=== PATIENT | female | born 1945 ===

== ENCOUNTER 2017-08-13 10:25 | Emergency (ER) | payer MEDICARE, OTHER ==
[2017-08-13 10:26] VITALS: BMI 25.0
[2017-08-13 11:32] LABS: BASO % 0.4 % (0.0-2.0); EOS % 0.6 % (0.0-4.0); LYMPH # 1.9 K/uL (1.0-4.3); LYMPH % 31.1 % (20.0-40.0); MEAN CELL VOLUME 94.7 fL (81.0-99.0); MEAN CORPUSCULAR HEMOGLOBIN 32.4 pg (27.0-31.0); MEAN CORPUSCULAR HGB CONC 34.2 g/dL (33.0-37.0); MEAN PLATELET VOLUME 8.4 fL (7.2-11.7); MONO # 0.4 K/uL (0.0-0.8); NEUT # 3.7 K/uL (1.8-7.0); NEUT % 60.9 % (50.0-75.0); RBC 3.71 Mil/uL (3.80-5.20); RED CELL DISTRIBUTION WIDTH 13.2 % (11.5-14.5); WHITE BLOOD COUNT 6.1 K/uL (4.8-10.8)
[2017-08-13 11:39] LABS: INR 0.9; PROTHROMBIN TIME 10.7 SECONDS (9.7-12.2)
[2017-08-13 11:48] LABS: ALB/GLOB RATIO 1.3 (1.0-2.1); ALBUMIN 4.3 g/dL (3.5-5.0); ALT/SGPT 11 U/L (9-52); AST/SGOT 35 U/L (14-36); BLOOD UREA NITROGEN 17 mg/dL (7-17); CALCIUM 9.8 mg/dl (8.6-10.4); GFR AFRICAN-AMERICAN > 60; GFR NON-AFRICAN AMERICAN > 60; URIC ACID 3.4 mg/dL (2.2-7.5)
--- NOTE | 2017-08-13 12:08 | RAD ---
PROCEDURE: Left Foot Radiographs. HISTORY: foot and heel pain for week COMPARISON: None. FINDINGS: BONES: Osteopenia. No acute fracture. JOINTS: Joint space narrowing. SOFT TISSUES: Normal. OTHER FINDINGS: Achilles enthesophyte. Inferior plantar calcaneal spur. IMPRESSION: No demonstrated fracture or dislocation. Mild degenerative changes. Calcaneal spur.
--- NOTE | 2017-08-13 12:09 | RAD ---
PROCEDURE: Left Knee Radiographs. HISTORY: Pain. COMPARISON: None. FINDINGS: BONES: No acute fracture. JOINTS: Mild tibial femoral compartment narrowing with minimal degenerative spurring. JOINT EFFUSION: None. OTHER FINDINGS: None. IMPRESSION: No demonstrated fracture or dislocation. Mild degenerative changes.
--- NOTE | 2017-08-13 12:48 | VASCLAB ---
PROCEDURE: Left Lower Extremity Venous Duplex Exam. HISTORY: left leg pain PRIORS: None. TECHNIQUE: Left common femoral, femoral, popliteal and posterior tibial, peroneal and great saphenous veins were evaluated. Flow was assessed with color Doppler, compressibility, assessment of phasic flow and augmentation response. Report prepared by LUCERO Yung, RVT FINDINGS: LEFT: 1. Common Femoral Vein: 1.1. Compressibility - Fully compressible: Thrombus - None : Flow - Phasic: Augmentation -Normal: Reflux - None. 2. Femoral Vein: 2.1. Compressibility - Fully compressible: Thrombus - None: Flow - Phasic: Augmentation -Normal: Reflux - None. 3. Popliteal Vein: 3.1. Compressibility - Fully compressible: Thrombus - None: Flow - Phasic: Augmentation -Normal: Reflux - None. 4. Posterior Tibial Vein: 4.1. Compressibility - Fully compressible: Thrombus - None: Flow - Phasic: Augmentation -Normal: Reflux - None. 5. Peroneal Vein: 5.1. Compressibility - Fully compressible: Thrombus - None: Flow - Phasic: Augmentation -Normal: Reflux - None. 6. Great Saphenous Vein: 6.1. Compressibility - Fully compressible: Thrombus - None: Flow - Phasic: Augmentation - Normal: Reflux - None. OTHER FINDINGS: IMPRESSION: No evidence of deep or superficial vein thrombosis of the left lower extremity with excellent venous flow. Normal valve function noted of the left side. Normal venous flow noted in the right common femoral vein.
--- NOTE | 2017-08-13 12:54 | C.PDOC ---
History Of Present Illness 72 year old female presents to the ED for evaluation of left foot pain radiating to left thigh which began 1 week ago. Patient describes a "cramping" sensation. She states the pain begins at the heel of her left foot, then radiates to her left ankle and to her left mid-thigh. Patient has been taking Naproxen without significant relief. Patient denies injury, fever, chills, shortness of breath. Time Seen by Provider: 08/13/17 10:57 Chief Complaint (Nursing): Lower Extremity Problem/Injury History Per: Patient History/Exam Limitations: no limitations Past Medical History Vital Signs: Last Vital Signs Temp 98.4 F 08/13/17 13:47 Pulse 75 08/13/17 13:47 Resp 20 08/13/17 13:47 BP 137/84 08/13/17 13:47 Pulse Ox 96 08/13/17 13:47 - Medical History PMH: Anxiety, Arthritis, Diabetes (with neuropathy), Diverticulitis, Hypercholesterolemia, Osteoporosis, Parkinson's Disease, TIA Surgical History: Appendectomy, Cholecystectomy - [facility] Procedures APPLICATION OF SPLINT (09/26/05) COLONOSCOPY (02/16/14) LAPAROSCOP LYSIS-PERITONEAL ADHES (06/29/99) LAPAROSCOP REMOVE OVARIES/TUBES (06/29/99) Family History: States: Unknown Family Hx - Social History Hx Alcohol Use: No Hx Substance Use: No - Immunization History Hx Tetanus Toxoid Vaccination: No Hx Influenza Vaccination: Yes Hx Pneumococcal Vaccination: Yes Review Of Systems Respiratory: Negative for: Shortness of Breath Musculoskeletal: Positive for: Leg Pain Physical Exam - Physical Exam Appears: Non-toxic, No Acute Distress Skin: Normal Color, Warm, Dry Head: Atraumatic, Normacephalic Eye(s): bilateral: Normal Inspection, EOMI Oral Mucosa: Moist Neck: Supple Chest: Symmetrical, No Deformity, No Tenderness Cardiovascular: Rhythm Regular, No Murmur Respiratory: Normal Breath Sounds, No Rhonchi, No Wheezing Extremity: Normal ROM, Tenderness (to left heel, left anterior tibial region and left knee ), No Pedal Edema, No Calf Tenderness, Capillary Refill (less than 2 seconds ), No Deformity, No Swelling Extremity: Bilateral: Hips Non-Tender Pulses: Left Dorsalis Pedis: Normal, Right Dorsalis Pedis: Normal Neurological/Psych: Oriented x3, Normal Speech, Normal Motor, Normal Sensation Gait: Steady ED Course And Treatment - Laboratory Results Result Diagrams: 08/13/17 11:29 08/13/17 11:29 Lab Interpretation: No Acute Changes O2 Sat by Pulse Oximetry: 98 (on RA) Pulse Ox Interpretation: Normal - Other Rad left foot XR X-Ray: Interpreted by Me, Viewed By Me, Read By Radiologist Interpretation: PROCEDURE: Left Foot Radiographs. HISTORY: foot and heel pain for week. COMPARISON: None. FINDINGS: BONES: Osteopenia. No acute fracture. JOINTS: Joint space narrowing. SOFT TISSUES: Normal. OTHER FINDINGS: Achilles enthesophyte. Inferior plantar calcaneal spur. IMPRESSION : No demonstrated fracture or dislocation. Mild degenerative changes. Calcaneal spur. left knee XR X-Ray: Interpreted by Me, Viewed By Me, Read By Radiologist Interpretation: PROCEDURE: Left Knee Radiographs. HISTORY: Pain. COMPARISON : None. FINDINGS: BONES: No acute fracture. JOINTS: Mild tibial femoral compartment narrowing with minimal degenerative spurring. JOINT EFFUSION: None. OTHER FINDINGS: None. IMPRESSION: No demonstrated fracture or dislocation. Mild degenerative changes. Medical Decision Making Medical Decision Making: Impression: 71 year old female with left lower extremity pain Plan: * bloodwork * left foot XR * Venous Duplex Scan left lower extremity * Toradol IVP * reassess and disposition Progress: Bloodwork, Left foot XR, Venous Duplex Scan Left lower Extremity ordered. Venous doppler was negative. Radiologic studies reviewed and radiology reports read. There is calcaneal spurring which can explain heel pain. Patient remained well in no distress and reported pain was improving. I explained all results to patient. Patient feels comfortable going home and will be discharged. Patient given follow up instructions. Instructed to return to ER if symptoms worsen or new symptoms arise. 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 - Scribe Statement The provider has reviewed the documentation as recorded by the Scribe (Dulce Maria Shoemaker) All medical record entries made by the Scribe were at my direction and personally dictated by me. I have reviewed the chart and agree that the record accurately reflects my personal performance of the history, physical exam, medical decision making, and the department course for this patient. I have also personally directed, reviewed, and agree with the discharge instructions and disposition.
[2017-08-13 13:48] VITALS: BP 137/84; PULSE 75; RESP 20; TEMP 98.4
[2017-08-13 17:13] VITALS: O2SAT 98
== END 2017-08-13 13:47 | disposition home or self-care (01) ==
LOC: C.ER 10:25
DX: M72.2 Plantar fascial fibromatosis (principal); E11.40 Type 2 diabetes mellitus with diabetic neuropathy, unspecified; E78.00 Pure hypercholesterolemia, unspecified; G20 Parkinson's disease; Z86.73 Personal history of transient ischemic attack (TIA), and cerebral infarction without residual deficits
CPT/HCPCS: 73562; 73630; 80053; 84550; 85025; 85610; 85730; 93971; 96374; 99284; J1885

== ENCOUNTER 2017-12-09 10:51 | Emergency (ER) | payer MEDICARE, OTHER ==
[2017-12-09 10:51] VITALS: BMI 25.0
--- NOTE | 2017-12-09 12:03 | C.PDOC ---
History Of Present Illness 72 y/o female with PMHx of Parkinsons disease brought in by family for complaints of bilateral foot pain, worsening for the past several days. Patient reports having pins and needles sensation to the bottoms of both feet and toes. Also complains of numbness and stiffness to the bilateral fingers. States around 6:00am today she was unable to get out of her chair, prompting her to come in for evaluation. Patient reports taking gabapentin with initial relief of symptoms, but now states the medication is not working. Otherwise patient denies any headache, dizziness, shortness of breath, leg swelling, changes in speech, facial droop, focal weakness, change in mental status, or other complaints. Time Seen by Provider: 12/09/17 10:56 Chief Complaint (Nursing): Weakness/Neurological Deficit History Per: Patient History/Exam Limitations: no limitations Onset/Duration Of Symptoms: Days Current Symptoms Are (Timing): Worse Additional History Per: Family Past Medical History Reviewed: Historical Data, Nursing Documentation, Vital Signs Vital Signs: Last Vital Signs Temp 98.2 F 12/09/17 11:08 Pulse 105 H 12/09/17 11:08 Resp 20 12/09/17 11:08 BP 163/82 H 12/09/17 11:08 Pulse Ox 98 12/09/17 12:08 - Medical History PMH: Anxiety, Arthritis, Diabetes (with neuropathy), Diverticulitis, Hypercholesterolemia, Osteoporosis, Parkinson's Disease, TIA Denies: CAD, Gastritis, Gall Bladder Disease, GERD, HIV, Pancreatitis, Chronic Kidney Disease Surgical History: Appendectomy, Cholecystectomy - [facility] Procedures APPLICATION OF SPLINT (09/26/05) COLONOSCOPY (02/16/14) LAPAROSCOP LYSIS-PERITONEAL ADHES (06/29/99) LAPAROSCOP REMOVE OVARIES/TUBES (06/29/99) Family History: States: Unknown Family Hx - Social History Hx Alcohol Use: No Hx Substance Use: No - Immunization History Hx Tetanus Toxoid Vaccination: No Hx Influenza Vaccination: Yes Hx Pneumococcal Vaccination: Yes Review Of Systems Except As Marked, All Systems Reviewed And Found Negative. Constitutional: Negative for: Fever Eyes: Negative for: Vision Change Cardiovascular: Negative for: Chest Pain Respiratory: Negative for: Shortness of Breath Gastrointestinal: Negative for: Nausea, Vomiting, Diarrhea Musculoskeletal: Positive for: Foot Pain Skin: Negative for: Rash, Bruising Neurological: Negative for: Weakness, Numbness, Incoordination, Change in Speech , Confusion, Altered Mental Status, Dizziness Physical Exam - Physical Exam Appears: Non-toxic, No Acute Distress Skin: Normal Color, Warm, Dry Head: Atraumatic, Normacephalic Eye(s): bilateral: Normal Inspection, PERRL, EOMI Neck: Normal ROM, Supple Chest: Symmetrical Cardiovascular: Rhythm Regular, No Murmur Respiratory: Normal Breath Sounds, No Accessory Muscle Use Gastrointestinal/Abdominal: Soft, No Tenderness, No Distention Extremity: Tenderness (mild tenderness the plantar aspect of both feet) Extremity: Bilateral: Atraumatic, Normal Color And Temperature (with no edema, cyanosis, or signs of cellulitis), Other (Mild tremors at rest, consistent with history of Parkinson's) Pulses: Left Dorsalis Pedis: Normal (2+), Right Dorsalis Pedis: Normal (2+) Neurological/Psych: Oriented x3, Normal Speech, Normal Cranial Nerves, Normal Motor (redeye gunner strength equal bilaterally), Normal Sensation, No Dysarthria Other Neurological Findings: No Facial Palsy, No Tongue Deviation Extremity: Right: No Drift, Left: No Drift, Lower: No Drift ED Course And Treatment - Laboratory Results Result Diagrams: 12/09/17 12:11 12/09/17 12:11 O2 Sat by Pulse Oximetry: 98 (RA) Pulse Ox Interpretation: Normal Medical Decision Making Medical Decision Making: Initial Plan: --Blood work --Doppler US of bilateral lower extreme --Morphine 2 mg IVP --Reassess and dispo Disposition - Disposition Referrals: Andrew Christie MD [Staff Provider] - Disposition: HOME/ ROUTINE Disposition Time: 13:41 Condition: GOOD Additional Instructions: Try increasing the Gabapentin to 600mg TID. Make sure to walk using the walker. Follow up with the medical doctor within 1-2 days. return if worsened. 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 - Scribe Statement The provider has reviewed the documentation as recorded by the Scribe (Tram Rebolledo) All medical record entries made by the Scribe were at my direction and personally dictated by me. I have reviewed the chart and agree that the record accurately reflects my personal performance of the history, physical exam, medical decision making, and the department course for this patient. I have also personally directed, reviewed, and agree with the discharge instructions and disposition.
[2017-12-09 12:15] LABS: BASO # 0.1 K/uL (0.0-0.2); BASO % 0.7 % (0.0-2.0); EOS % 0.1 % (0.0-4.0); HEMOGLOBIN 12.5 g/dL (11.0-16.0); LYMPH # 1.5 K/uL (1.0-4.3); MEAN CELL VOLUME 93.6 fL (81.0-99.0); MEAN CORPUSCULAR HEMOGLOBIN 32.3 pg (27.0-31.0); MEAN CORPUSCULAR HGB CONC 34.5 g/dL (33.0-37.0); MEAN PLATELET VOLUME 8.8 fL (7.2-11.7); MONO # 0.4 K/uL (0.0-0.8); MONO % 5.9 % (0.0-10.0); NEUT # 5.5 K/uL (1.8-7.0); NEUT % 73.3 % (50.0-75.0); RBC 3.88 Mil/uL (3.80-5.20); RED CELL DISTRIBUTION WIDTH 13.2 % (11.5-14.5); WHITE BLOOD COUNT 7.5 K/uL (4.8-10.8)
[2017-12-09 12:36] LABS: ALB/GLOB RATIO 1.5 (1.0-2.1); ALBUMIN 4.6 g/dL (3.5-5.0); ALT/SGPT 22 U/L (9-52); AST/SGOT 32 U/L (14-36); BLOOD UREA NITROGEN 19 mg/dL (7-17); CALCIUM 10.1 mg/dl (8.6-10.4); GFR NON-AFRICAN AMERICAN > 60
[2017-12-09] MEDS ORDERED: PrednisoLONE 15 mg/5 ml Oral Syrup (240 ml) ONE (13:34)
[2017-12-09 13:58] VITALS: BP 160/80; PULSE 100; RESP 18; TEMP 98; O2SAT 97
--- NOTE | 2017-12-09 18:01 | VASCLAB ---
Date of service: 12/09/2017 PROCEDURE: Lower Extremity Venous Duplex Exam. HISTORY: bilateral leg pain and swelling PRIORS: None. TECHNIQUE: Bilateral common femoral, femoral, popliteal and posterior tibial, peroneal and great saphenous veins were evaluated. Flow was assessed with color Doppler, compressibility, assessment of phasic flow and augmentation response. Report prepared by SANYA Brantley FINDINGS: RIGHT: 1. Common Femoral Vein: 1.1. Compressibility - Fully compressible: Thrombus - None : Flow - Phasic: Augmentation -Normal: Reflux - None. 2. Femoral Vein: 2.1. Compressibility - Fully compressible: Thrombus - None : Flow - Phasic: Augmentation -Normal: Reflux - None. 3. Popliteal Vein: 3.1. Compressibility - Fully compressible: Thrombus - None : Flow - Phasic: Augmentation -Normal: Reflux - None. 4. Posterior Tibial Vein: 4.1. Compressibility - Fully compressible: Thrombus - None: Flow - Phasic: Augmentation -Normal: Reflux - None. 5. Peroneal Vein: 5.1. Compressibility - Fully compressible: Thrombus - None: Flow - Phasic: Augmentation -Normal: Reflux - None. 6. Great Saphenous Vein: 6.1. Compressibility - Fully compressible: Thrombus - None: Flow - Phasic: Augmentation - Normal: Reflux - None. LEFT: 1. Common Femoral Vein: 1.1. Compressibility - Fully compressible: Thrombus - None: Flow - Phasic: Augmentation -Normal: Reflux - None. 2. Femoral Vein: 2.1. Compressibility - Fully compressible: Thrombus - None: Flow - Phasic: Augmentation -Normal: Reflux - None. 3. Popliteal Vein: 3.1. Compressibility - Fully compressible: Thrombus - None : Flow - Phasic: Augmentation -Normal: Reflux - None. 4. Posterior Tibial Vein: 4.1. Compressibility - Fully compressible: Thrombus - None: Flow - Phasic: Augmentation -Normal: Reflux - None. 5. Peroneal Vein: 5.1. Compressibility - Fully compressible: Thrombus - None: Flow - Phasic: Augmentation -Normal: Reflux - None. 6. Great Saphenous Vein: 6.1. Compressibility - Fully compressible: Thrombus - None: Flow - Phasic: Augmentation - Normal: Reflux - None. OTHER FINDINGS: Right: None significant. Left: None significant. IMPRESSION: Right: No evidence of deep or superficial vein thrombosis of the right lower extremity. Normal valve function noted of the right side. Left: No evidence of deep or superficial vein thrombosis of the left lower extremity. Normal valve function noted of the left side.
== END 2017-12-09 13:58 | disposition home or self-care (01) ==
LOC: C.ER 10:51
DX: G62.9 Polyneuropathy, unspecified (principal); G20 Parkinson's disease
CPT/HCPCS: 80053; 82948; 85025; 93970; 96374; 99283; J2270

== ENCOUNTER 2017-12-09 19:00 | Inpatient (IN) | payer MEDICARE ==
[2017-12-09 19:00] VITALS: BMI 25.0
[2017-12-09] MEDS ORDERED: DTap Vaccine 0.5 ml Vial IM ONE (19:10)
--- NOTE | 2017-12-09 19:23 | C.PDOC ---
History Of Present Illness 72 y/o female with a PMHx of Parkinsons and peripheral neuropathy presents to the ER for evaluation of head injury. Patient states while walking with her walker today she tripped on a curb and fell backwards, sustaining a laceration to the back of her head. She is now complaining of a headache. No LOC. Denies any anticoagulant use. Last tetanus unknown. Otherwise she denies any chest pain , SOB, dizziness, visual changes, changes in speech, nausea, vomiting, abdominal pain, new weakness, or other injuries. - HPI Time Seen by Provider: 12/09/17 19:06 Chief Complaint (Nursing): Trauma History Per: Patient History/Exam Limitations: no limitations Injury Occurred (Timing): Just Before Arrival Past Medical History Reviewed: Historical Data, Nursing Documentation, Vital Signs Vital Signs: Last Vital Signs Temp 98.6 F 12/09/17 19:11 Pulse 78 12/09/17 19:11 Resp 20 12/09/17 19:11 BP 143/79 12/09/17 19:11 Pulse Ox 99 12/09/17 20:58 - Medical History PMH: Anxiety, Arthritis, Diabetes (with neuropathy), Diverticulitis, Hypercholesterolemia, Osteoporosis, Parkinson's Disease, TIA Denies: CAD, Gastritis, Gall Bladder Disease, GERD, HIV, Pancreatitis, Chronic Kidney Disease Other PMH: Peripheral neuropathy Surgical History: Appendectomy, Cholecystectomy - [facility] Procedures APPLICATION OF SPLINT (09/26/05) COLONOSCOPY (02/16/14) LAPAROSCOP LYSIS-PERITONEAL ADHES (06/29/99) LAPAROSCOP REMOVE OVARIES/TUBES (06/29/99) Family History: States: Unknown Family Hx - Social History Hx Alcohol Use: No Hx Substance Use: No - Immunization History Hx Tetanus Toxoid Vaccination: No Hx Influenza Vaccination: Yes Hx Pneumococcal Vaccination: Yes Review Of Systems Except As Marked, All Systems Reviewed And Found Negative. Eyes: Negative for: Vision Change Cardiovascular: Negative for: Chest Pain Respiratory: Negative for: Shortness of Breath Gastrointestinal: Negative for: Nausea, Vomiting, Abdominal Pain Musculoskeletal: Negative for: Neck Pain, Back Pain Skin: Positive for: Lesions (head laceration) Neurological: Positive for: Headache. Negative for: Weakness, Numbness, Incoordination, Dizziness, Other (LOC) Physical Exam - Physical Exam Appears: Non-toxic, No Acute Distress Skin: Normal Color, Warm, Dry Head: Normacephalic, Laceration (2 cm laceration to the posterior scalp, no active bleeding) Eye(s): bilateral: Normal Inspection, PERRL, EOMI Ear(s): Bilateral: Normal Neck: Normal ROM, No Midline Cervical Tenderness, No Paracervical Tenderness, Supple Chest: Symmetrical Cardiovascular: Rhythm Regular, No Murmur Respiratory: Normal Breath Sounds, No Rales, No Rhonchi, No Wheezing Gastrointestinal/Abdominal: Soft, No Tenderness, No Distention Back: Normal Inspection, No Vertebral Tenderness Extremity: Bilateral: Atraumatic, Normal Color And Temperature, Normal ROM Neurological/Psych: Oriented x3, Normal Speech, Normal Cranial Nerves, Normal Motor, Normal Sensation, Other (No focal deficits) ED Course And Treatment - Laboratory Results Result Diagrams: 12/09/17 20:53 12/09/17 20:53 O2 Sat by Pulse Oximetry: 99 (RA) Pulse Ox Interpretation: Normal Laceration - Laceration Repair posterior scalp Wound Length (In cm): 2 Description Of Wound: Linear Wound Cleansed With: Betadine, Sterile Saline Anesthesia: Lidocaine 1%, With Epi Wound Examination: Irrigated With Saline Wound Closure: Suture (x3) Suture Technique And Material Used: Prolene (3:0) Wound Complexity: Simple Medical Decision Making Medical Decision Making: Initial Plan: --Tylenol 975 mg PO --Tetanus booster x1 --Laceration repair --CT Head w/o contrast CT results: IMPRESSION: 1. Acute anterior parafalcine subdural hemorrhage without significant intracranial mass effect. 2. Small right parietal scalp contusion and laceration related gas. Patient neurologically intact. 20:22 Paged neurosurgery on-call, [facility]. Awaiting call back. 20:[address] Covington, who is requesting q2 hour neuro checks and repeat CT head in am. 20:[address] Christie, who is requesting admission under the hospitalist service. 20:35 Spoke to [employer] operator, Dr. Dozier, who was made aware of patient. 20:41 Dr. Monge accepts patient 21:13 Received call back from Dr. Story, who requests repeat CT scan at 08:00 tomorrow morning. Disposition - Disposition Disposition: HOSPITALIZED Disposition Time: 20:41 Condition: CRITICAL - Clinical Impression Clinical Impression: Subdural hemorrhage, Fall Critical Care Time - Critical Care Note Total Time (in mins): 30 Documented critical care: time excludes all time spent performing seperately billable procedures. - Scribe Statement The provider has reviewed the documentation as recorded by the Scribe (Tram Rebolledo) Provider Attestation: All medical record entries made by the Scribe were at my direction and personally dictated by me. I have reviewed the chart and agree that the record accurately reflects my personal performance of the history, physical exam, medical decision making, and the department course for this patient. I have also personally directed, reviewed, and agree with the discharge instructions and disposition.
[2017-12-09] MEDS ORDERED: Tetanus/Diphtheria Toxoids 0.5 ml Syringe IM ONE (19:53)
[2017-12-09 20:59] LABS: BASO % 0.4 % (0.0-2.0); EOS # 0.1 K/uL (0.0-0.7); EOS % 0.7 % (0.0-4.0); HEMOGLOBIN 12.5 g/dL (11.0-16.0); LYMPH # 1.9 K/uL (1.0-4.3); LYMPH % 24.2 % (20.0-40.0); MEAN CELL VOLUME 94.5 fL (81.0-99.0); MEAN CORPUSCULAR HEMOGLOBIN 31.9 pg (27.0-31.0); MEAN CORPUSCULAR HGB CONC 33.7 g/dL (33.0-37.0); MEAN PLATELET VOLUME 8.4 fL (7.2-11.7); MONO # 0.7 K/uL (0.0-0.8); MONO % 9.3 % (0.0-10.0); NEUT % 65.4 % (50.0-75.0); NRBC % 0.1 % (0.0-2.0); RBC 3.92 Mil/uL (3.80-5.20); WHITE BLOOD COUNT 7.7 K/uL (4.8-10.8)
--- NOTE | 2017-12-09 21:06 | CP.PCM.HP ---
<Rubio Kwon - Last Filed: 12/10/17 04:42> History of Present Illness - History of Present Illness History of Present Illness: PGY2 Medicine H+P for Dr. Monge Patient is a 72 year old female with a past medical history of Parkinson's, peripheral neuropathy, arthritis and osteoporosis presenting to the emergency room s/p fall. Patient was walking with her walker earlier today when her leg started to shake and gave it. This caused her to fall backwards and hit her head on the curb with the walker landing on top of her. She sustained a laceration to the back of her head. She denies any LOC, vision changes, nausea or vomiting. She does not take any anti-coagulation. She reports a headaches but is feeling well otherwise. She experiences tremors in her legs periodically which causes her legs to buckle at random times. This is not a new finding. Patient is accompanied by a family member at bedside that states the patient is at her baseline. PMH: Parkinson's, peripheral neuropathy, arthritis and osteoporosis PSH: Appendectomy, Deidre Social: Denies tobacco, alcohol or illicit drug use. Allergies: Clarithromycin and Iodine Meds: * Carbidopa-Levodopa 10-100mg PO TID * Protonix 40mg PO daily * Gabapentin 300mg PO TID * Simvastatin 20mg PO HS * Neupro 4mg/24hr patch TD daily * Alendronate 70mg PO qWK * Requip (Ropinirole HCl) 2mg TID Present on Admission - Present on Admission Any Indicators Present on Admission: No Review of Systems - Review of Systems All systems: reviewed and no additional remarkable complaints except - Constitutional Constitutional: As Per HPI - EENT Eyes: As Per HPI Ears: As Per HPI Nose/Mouth/Throat: As Per HPI - Cardiovascular Cardiovascular: As Per HPI - Respiratory Respiratory: As Per HPI - Gastrointestinal Gastrointestinal: As Per HPI - Genitourinary Genitourinary: As Per HPI - Musculoskeletal Musculoskeletal: As Per HPI - Integumentary Integumentary: As Per HPI - Neurological Neurological: As Per HPI - Psychiatric Psychiatric: As Per HPI - Endocrine Endocrine: As Per HPI - Hematologic/Lymphatic Hematologic: As Per HPI Past Patient History - Infectious Disease Hx of Infectious Diseases: None - Past Medical History & Family History Past Medical History?: Yes - Past Social History Smoking Status: Never Smoked - CARDIAC Hx Hypercholesterolemia: Yes - PULMONARY Hx Respiratory Disorders: No - NEUROLOGICAL Hx Parkinson's Disease: Yes Hx Transient Ischemic Attacks (TIA): Yes - HEENT Hx HEENT Problems: Yes Hx Cataracts: Yes (HX OF RACHEL. SURGERY) - RENAL Hx Chronic Kidney Disease: No - ENDOCRINE/METABOLIC Hx Endocrine Disorders: No - HEMATOLOGICAL/ONCOLOGICAL Hx Human Immunodeficiency Virus (HIV): No - INTEGUMENTARY Hx Dermatological Problems: No - MUSCULOSKELETAL/RHEUMATOLOGICAL Hx Arthritis: Yes Hx Osteoporosis: Yes - GASTROINTESTINAL Hx Diverticulitis: Yes Hx Gall Bladder Disease: No Hx Gastritis: No Hx Pancreatitis: No - GENITOURINARY/GYNECOLOGICAL Hx Genitourinary Disorders: No - PSYCHIATRIC Hx Anxiety: Yes Hx Substance Use: No - SURGICAL HISTORY Hx Appendectomy: Yes Hx Cholecystectomy: Yes - ANESTHESIA Hx Anesthesia: Yes Hx Anesthesia Reactions: Yes (delayed awakening) Hx Malignant Hyperthermia: No Meds Allergies/Adverse Reactions: Allergies Allergy/AdvReac Type Severity Reaction Status Date / Time clarithromycin Allergy NAUSEA Verified 12/09/17 11:08 iodine Allergy SWELLING Verified 12/09/17 11:08 Physical Exam - Constitutional Appears: Non-toxic, No Acute Distress, Chronically Ill - Head Exam Head Exam: absent: ATRAUMATIC Additional comments: dried blood and sutures on posterior portion of scalp - Eye Exam Eye Exam: EOMI, Normal appearance, PERRL Pupil Exam: NORMAL ACCOMODATION, PERRL - ENT Exam ENT Exam: Mucous Membranes Moist - Neck Exam Neck exam: Positive for: Full Rom, Normal Inspection. Negative for: Lymphadenopathy, Tenderness - Respiratory Exam Respiratory Exam: Clear to Auscultation Bilateral, NORMAL BREATHING PATTERN. absent: Accessory Muscle Use, Rales, Rhonchi, Wheezes, Respiratory Distress - Cardiovascular Exam Cardiovascular Exam: REGULAR RHYTHM, +S1, +S2. absent: JVD - GI/Abdominal Exam GI & Abdominal Exam: Normal Bowel Sounds, Soft. absent: Distended, Firm, Guarding, Rebound, Rigid, Tenderness - Extremities Exam Extremities exam: Positive for: pedal pulses present. Negative for: calf tenderness, pedal edema Additional comments: patient has poor strength in LE b/l. Has difficulty lifting legs off of bed and keep legs elevated. Per patient and family member at bedside, this is her baseline. - Back Exam Back exam: NORMAL INSPECTION. absent: muscle spasm, paraspinal tenderness, tenderness, vertebral tenderness - Neurological Exam Neurological exam: Alert, CN II-XII Intact, Oriented x3 - Expanded Neurological Exam Expanded Patient oriented to: person, place, time Speech: Fluid Speech Cranial nerves: EOM's Intact: Normal, Facial Palsey w/Forehead Movement: Normal , Facial Palsey w/o Forehead Movement: Normal, Facial Sensation: Normal, Nystagmus: Normal, Tongue Deviation: Normal Cerebellar Function: Finger to Nose: Normal, Heel to Mena: Normal Upper motor neuron: Babinski Sign: Normal, Pronator Drift: Normal Sensory exam: Lower Extremity Light Touch: Abnormal Left (increased on left, per pt, this is normal for her 2/2 fibromyalgia), Upper Extremity Light Touch: Normal Neuro motor strength exam: Left Upper Extremity: 5, Right Upper Extremity: 5, Left Lower Extremity: 3 (baseline for pt), Right Lower Extremity: 3 (baseline for pt) Coma Scale Eye Opening: SPONTANEOUS, To Voice Coma Scale Motor Response: OBEYS COMMANDS Coma Scale Verbal: Oriented Coma Scale Total: 18 - Psychiatric Exam Psychiatric exam: Normal Affect, Normal Mood - Skin Skin Exam: Dry, Warm Results - Vital Signs Recent Vital Signs: Last Vital Signs Temp 98.6 F 12/09/17 19:11 Pulse 78 12/09/17 19:11 Resp 20 12/09/17 19:11 BP 143/79 12/09/17 19:11 Pulse Ox 99 12/09/17 20:58 - Labs Result Diagrams: 12/09/17 20:53 12/09/17 20:53 Labs: Laboratory Results - last 24 hr 12/09/17 20:53 WBC 7.7 RBC 3.92 Hgb 12.5 Hct 37.0 MCV 94.5 MCH 31.9 H MCHC 33.7 RDW 13.0 Plt Count 240 MPV 8.4 Neut % (Auto) 65.4 Lymph % (Auto) 24.2 [place] % (Auto) 9.3 Eos % (Auto) 0.7 Baso % (Auto) 0.4 Neut # (Auto) 5.0 Lymph # (Auto) 1.9 [place] # (Auto) 0.7 Eos # (Auto) 0.1 Baso # (Auto) 0.0 Assessment & Plan - Assessment and Plan (Free Text) Plan: Acute anterior parafalcine subdural hemorrhage without significant intracranial mass effect s/p fall Neuro Surg consulted, Dr. Story * repeat Head CT at 8am Neurology consulted, Dr. Covington * neuro checks q2h Critical Care consulted, Dr. oDzier * patient accepted to ICU for further monitoring and management. Head CT w/o 12/09/17: * Acute anterior parafalcine subdural hemorrhage without significant intracranial mass effect. * Small right parietal scalp contusion and laceration related gas. Continue to monitor at this time. f/u repeat Head CT in AM. All home medications are on hold until AM repeat Head CT Laceration in posterior portion of head closed with 3 sutures in ED. Parkinson's Disease Home Medications (currently on hold): * Carbidopa-Levodopa 10-100mg PO TID * Requip (Ropinirole HCl) 2mg TID Peripheral Neuropathy Patient denies hx of DM States cause of neuropathy is unknown Home Medications (currently on hold): * Gabapentin 300mg PO TID Osteoporosis Home Medications (currently on hold): * Alendronate 70mg PO qWK (did not clarify what day of week patient takes her medications Prophylactic Care VTE contra - brain bleed SCDs Case discussed with Dr. Monge <Carl Monge - Last Filed: 12/10/17 06:29> Results - Vital Signs Recent Vital Signs: Last Vital Signs Temp 98 F 12/10/17 04:02 Pulse 90 12/10/17 06:20 Resp 19 12/10/17 06:20 BP 119/62 12/10/17 05:53 Pulse Ox 99 12/10/17 06:20 - Labs Result Diagrams: 12/10/17 06:13 12/09/17 20:53 Labs: Laboratory Results - last 24 hr 12/09/17 12/09/17 12/09/17 20:53 20:53 20:53 WBC 7.7 RBC 3.92 Hgb 12.5 Hct 37.0 MCV 94.5 MCH 31.9 H MCHC 33.7 RDW 13.0 Plt Count 240 MPV 8.4 Neut % (Auto) 65.4 Lymph % (Auto) 24.2 [place] % (Auto) 9.3 Eos % (Auto) 0.7 Baso % (Auto) 0.4 Neut # (Auto) 5.0 Lymph # (Auto) 1.9 [place] # (Auto) 0.7 Eos # (Auto) 0.1 Baso # (Auto) 0.0 PT 11.3 INR 1.0 APTT 29 Sodium 140 Potassium 4.2 Chloride 103 Carbon Dioxide 28 Anion Gap 14 BUN 21 H Creatinine 1.1 Est GFR ( Amer) 59 Est GFR (Non-Af Amer) 49 Random Glucose 104 Calcium 9.7 Blood Type Antibody Screen 12/09/17 12/10/17 20:53 06:13 WBC 6.4 RBC 3.61 L Hgb 11.8 Hct 34.1 MCV 94.2 MCH 32.6 H MCHC 34.6 RDW 12.9 Plt Count 210 MPV 8.7 Neut % (Auto) 57.4 Lymph % (Auto) 29.4 [place] % (Auto) 10.3 H Eos % (Auto) 2.1 Baso % (Auto) 0.8 Neut # (Auto) 3.6 Lymph # (Auto) 1.9 [place] # (Auto) 0.7 Eos # (Auto) 0.1 Baso # (Auto) 0.1 PT INR APTT Sodium Potassium Chloride Carbon Dioxide Anion Gap BUN Creatinine Est GFR ( Amer) Est GFR (Non-Af Amer) Random Glucose Calcium Blood Type O POSITIVE Antibody Screen Negative Assessment & Plan - Date & Time Date: 12/10/17 (I have seen and examined the patient. I agree with the findins and plan of care as documented by Dr. Kwon. Patient with sudural hematoma. S/ P Fall. Consult to neuro and neurosurg. Admit to ICU for close observation and further management. Continue home meds for history of Parkinson's. Monitor for acute changes.) Time: 06:28 Attending/Attestation - Attestation I have personally seen and examined this patient.: Yes I have fully participated in the care of the patient.: Yes I have reviewed all pertinent clinical information: Yes
[2017-12-09 21:11] LABS: PROTHROMBIN TIME 11.3 SECONDS (9.7-12.2)
[2017-12-09 21:14] LABS: CALCIUM 9.7 mg/dl (8.6-10.4)
--- NOTE | 2017-12-09 22:17 | CP.PCM.CON ---
<CherRonanRubio - Last Filed: 12/10/17 05:05> History of Present Illness - History of Present Illness History of Present Illness: PGY2 Consult Note for Dr. Dozier Patient is a 72 year old female with a past medical history of Parkinson's, peripheral neuropathy, arthritis and osteoporosis presenting to the emergency room s/p fall. Patient was walking with her walker earlier today when her leg started to shake and eventually buckled. This caused her to fall backwards and hit her head on the curb with the walker landing on top of her. She sustained a laceration to the back of her head. She denies any LOC, vision changes, nausea or vomiting. She does not take any anti-coagulation. She reports a headaches but is feeling well otherwise. She experiences tremors in her legs periodically which causes her legs to buckle at random times. This is not a new finding. Patient is accompanied by a family member at bedside that states the patient is at her baseline. PMH: Parkinson's, peripheral neuropathy, arthritis and osteoporosis PSH: Appendectomy, [place]idre Social: Denies tobacco, alcohol or illicit drug use. Allergies: Clarithromycin and Iodine Meds: * Carbidopa-Levodopa 10-100mg PO TID * Protonix 40mg PO daily * Gabapentin 300mg PO TID * Simvastatin 20mg PO HS * Neupro 4mg/24hr patch TD daily * Alendronate 70mg PO qWK * Requip (Ropinirole HCl) 2mg TID Review of Systems - Review of Systems All systems: reviewed and no additional remarkable complaints except - Constitutional Constitutional: As Per HPI, Headache. absent: Chills, Fever, Lethargy - EENT Eyes: As Per HPI. absent: Blurred Vision, Change in Vision, Loss of Vision Nose/Mouth/Throat: As Per HPI. absent: Nasal Congestion, Nose Pain, Sinus Pain , Sore Throat, Neck Pain - Cardiovascular Cardiovascular: As Per HPI. absent: Chest Pain, Chest Pain at Rest, Diaphoresis , Dyspnea, Edema, Lightheadedness, Palpitations, Syncope - Respiratory Respiratory: As Per HPI. absent: Cough, Dyspnea on Exertion, Wheezing - Gastrointestinal Gastrointestinal: As Per HPI. absent: Abdominal Pain, Constipation, Diarrhea, Nausea, Vomiting - Musculoskeletal Musculoskeletal: As Per HPI. absent: Numbness, Tingling - Integumentary Integumentary: As Per HPI. absent: Erythema - Neurological Neurological: As Per HPI, Headaches. absent: Convulsions, Dizziness, Numbness, Focal Weakness, Memory Loss, Paresthesias, Sensory Deficit, Syncope, Tingling, Vertigo - Psychiatric Psychiatric: As Per HPI. absent: Anxiety, Depression - Hematologic/Lymphatic Hematologic: As Per HPI Past Patient History - Infectious Disease Hx of Infectious Diseases: None - Past Medical History & Family History Past Medical History?: Yes - Past Social History Smoking Status: Never Smoked - CARDIAC Hx Hypercholesterolemia: Yes - PULMONARY Hx Respiratory Disorders: No - NEUROLOGICAL Hx Parkinson's Disease: Yes Hx Transient Ischemic Attacks (TIA): Yes - HEENT Hx HEENT Problems: Yes Hx Cataracts: Yes (HX OF RACHEL. SURGERY) - RENAL Hx Chronic Kidney Disease: No - ENDOCRINE/METABOLIC Hx Endocrine Disorders: No - HEMATOLOGICAL/ONCOLOGICAL Hx Human Immunodeficiency Virus (HIV): No - INTEGUMENTARY Hx Dermatological Problems: No - MUSCULOSKELETAL/RHEUMATOLOGICAL Hx Arthritis: Yes Hx Osteoporosis: Yes - GASTROINTESTINAL Hx Diverticulitis: Yes Hx Gall Bladder Disease: No Hx Gastritis: No Hx Pancreatitis: No - GENITOURINARY/GYNECOLOGICAL Hx Genitourinary Disorders: No - PSYCHIATRIC Hx Anxiety: Yes Hx Substance Use: No - SURGICAL HISTORY Hx Appendectomy: Yes Hx Cholecystectomy: Yes - ANESTHESIA Hx Anesthesia: Yes Hx Anesthesia Reactions: Yes (delayed awakening) Hx Malignant Hyperthermia: No Meds Allergies/Adverse Reactions: Allergies Allergy/AdvReac Type Severity Reaction Status Date / Time clarithromycin Allergy NAUSEA Verified 12/09/17 11:08 iodine Allergy SWELLING Verified 12/09/17 11:08 Physical Exam - Additional Findings Additional findings: - Constitutional Appears: Non-toxic, No Acute Distress, Chronically Ill - Head Exam Head Exam: absent: ATRAUMATIC Additional comments: dried blood and sutures on posterior portion of scalp - Eye Exam Eye Exam: EOMI, Normal appearance, PERRL Pupil Exam: NORMAL ACCOMODATION, PERRL - ENT Exam ENT Exam: Mucous Membranes Moist - Neck Exam Neck exam: Positive for: Full Rom, Normal Inspection. Negative for: Lymphadenopathy, Tenderness - Respiratory Exam Respiratory Exam: Clear to Auscultation Bilateral, NORMAL BREATHING PATTERN. absent: Accessory Muscle Use, Rales, Rhonchi, Wheezes, Respiratory Distress - Cardiovascular Exam Cardiovascular Exam: REGULAR RHYTHM, +S1, +S2. absent: JVD - GI/Abdominal Exam GI & Abdominal Exam: Normal Bowel Sounds, Soft. absent: Distended, Firm, Guarding, Rebound, Rigid, Tenderness - Extremities Exam Extremities exam: Positive for: pedal pulses present. Negative for: calf tenderness, pedal edema Additional comments: patient has poor strength in LE b/l. Has difficulty lifting legs off of bed and keep legs elevated. Per patient and family member at bedside, this is her baseline. - Back Exam Back exam: NORMAL INSPECTION. absent: muscle spasm, paraspinal tenderness, tenderness, vertebral tenderness - Neurological Exam Neurological exam: Alert, CN II-XII Intact, Oriented x3 - Expanded Neurological Exam Expanded Patient oriented to: person, place, time Speech: Fluid Speech Cranial nerves: EOM's Intact: Normal, Facial Palsey w/Forehead Movement: Normal , Facial Palsey w/o Forehead Movement: Normal, Facial Sensation: Normal, Nystagmus: Normal, Tongue Deviation: Normal Cerebellar Function: Finger to Nose: Normal, Heel to Mena: Normal Upper motor neuron: Babinski Sign: Normal, Pronator Drift: Normal Sensory exam: Lower Extremity Light Touch: Abnormal Left (increased on left, per pt, this is normal for her 2/2 fibromyalgia), Upper Extremity Light Touch: Normal Neuro motor strength exam: Left Upper Extremity: 5, Right Upper Extremity: 5, Left Lower Extremity: 3 (baseline for pt), Right Lower Extremity: 3 (baseline for pt) Coma Scale Eye Opening: SPONTANEOUS, To Voice Coma Scale Motor Response: OBEYS COMMANDS Coma Scale Verbal: Oriented Coma Scale Total: 18 - Psychiatric Exam Psychiatric exam: Normal Affect, Normal Mood - Skin Skin Exam: Dry, Warm Results - Vital Signs Recent Vital Signs: Last Vital Signs Temp 98.6 F 12/09/17 19:11 Pulse 78 12/09/17 19:11 Resp 20 12/09/17 19:11 BP 143/79 12/09/17 19:11 Pulse Ox 99 12/09/17 21:57 - Labs Result Diagrams: 12/09/17 20:53 12/09/17 20:53 Labs: Laboratory Results - last 24 hr 12/09/17 12/09/17 12/09/17 20:53 20:53 20:53 WBC 7.7 RBC 3.92 Hgb 12.5 Hct 37.0 MCV 94.5 MCH 31.9 H MCHC 33.7 RDW 13.0 Plt Count 240 MPV 8.4 Neut % (Auto) 65.4 Lymph % (Auto) 24.2 [place] % (Auto) 9.3 Eos % (Auto) 0.7 Baso % (Auto) 0.4 Neut # (Auto) 5.0 Lymph # (Auto) 1.9 [place] # (Auto) 0.7 Eos # (Auto) 0.1 Baso # (Auto) 0.0 PT 11.3 INR 1.0 APTT 29 Sodium 140 Potassium 4.2 Chloride 103 Carbon Dioxide 28 Anion Gap 14 BUN 21 H Creatinine 1.1 Est GFR ( Amer) 59 Est GFR (Non-Af Amer) 49 Random Glucose 104 Calcium 9.7 Assessment & Plan - Assessment and Plan (Free Text) Plan: Acute anterior parafalcine subdural hemorrhage without significant intracranial mass effect s/p fall Neuro Surg consulted, Dr. Story * repeat Head CT at 8am Neurology consulted, Dr. Covington * neuro checks q2h Critical Care consulted, Dr. Dozier * patient accepted to ICU for further monitoring and management. Head CT w/o 12/09/17: * Acute anterior parafalcine subdural hemorrhage without significant intracranial mass effect. * Small right parietal scalp contusion and laceration related gas. Continue to monitor at this time. f/u repeat Head CT in AM. All home medications are on hold until AM repeat Head CT Laceration in posterior portion of head closed with 3 sutures in ED. Tylenol given for headache Parkinson's Disease Home Medications (currently on hold): * Carbidopa-Levodopa 10-100mg PO TID * Requip (Ropinirole HCl) 2mg TID Peripheral Neuropathy Patient denies hx of DM States cause of neuropathy is unknown Home Medications (currently on hold): * Gabapentin 300mg PO TID Osteoporosis Home Medications (currently on hold): * Alendronate 70mg PO qWK (did not clarify what day of week patient takes her medications Prophylactic Care VTE contra - brain bleed SCDs OT/PT Case discussed with Dr. Tasia Kwon PGY2 <Law Dozier - Last Filed: 12/10/17 07:19> Meds - Medications Medications: Current Medications Magnesium Sulfate/Dextrose (Magnesium Sulfate 1 Gm/100 Ml D5w) 1 gm in 100 mls @ 200 mls/hr IVPB Q30M JONATHAN Stop: 12/10/17 09:29 Valproate Sodium 500 mg/ (Sodium Chloride) 105 mls @ 105 mls/hr IVPB ONCE ONE PRN Reason: Per Protocol Stop: 12/10/17 08:29 Results - Vital Signs Recent Vital Signs: Last Vital Signs Temp 98 F 12/10/17 04:02 Pulse 90 12/10/17 06:20 Resp 19 12/10/17 06:20 BP 119/62 12/10/17 05:53 Pulse Ox 99 12/10/17 06:20 - Labs Result Diagrams: 12/10/17 06:13 12/10/17 06:13 Labs: Laboratory Results - last 24 hr 12/09/17 12/09/17 12/09/17 20:53 20:53 20:53 WBC 7.7 RBC 3.92 Hgb 12.5 Hct 37.0 MCV 94.5 MCH 31.9 H MCHC 33.7 RDW 13.0 Plt Count 240 MPV 8.4 Neut % (Auto) 65.4 Lymph % (Auto) 24.2 [place] % (Auto) 9.3 Eos % (Auto) 0.7 Baso % (Auto) 0.4 Neut # (Auto) 5.0 Lymph # (Auto) 1.9 [place] # (Auto) 0.7 Eos # (Auto) 0.1 Baso # (Auto) 0.0 PT 11.3 INR 1.0 APTT 29 Sodium 140 Potassium 4.2 Chloride 103 Carbon Dioxide 28 Anion Gap 14 BUN 21 H Creatinine 1.1 Est GFR ( Amer) 59 Est GFR (Non-Af Amer) 49 Random Glucose 104 Calcium 9.7 Phosphorus Magnesium Total Bilirubin AST ALT Alkaline Phosphatase Total Protein Albumin Globulin Albumin/Globulin Ratio Blood Type Antibody Screen 12/09/17 12/10/17 12/10/17 20:53 06:13 06:13 WBC 6.4 RBC 3.61 L Hgb 11.8 Hct 34.1 MCV 94.2 MCH 32.6 H MCHC 34.6 RDW 12.9 Plt Count 210 MPV 8.7 Neut % (Auto) 57.4 Lymph % (Auto) 29.4 [place] % (Auto) 10.3 H Eos % (Auto) 2.1 Baso % (Auto) 0.8 Neut # (Auto) 3.6 Lymph # (Auto) 1.9 [place] # (Auto) 0.7 Eos # (Auto) 0.1 Baso # (Auto) 0.1 PT INR APTT Sodium 146 Potassium 4.1 Chloride 105 Carbon Dioxide 27 Anion Gap 17 BUN 18 H Creatinine 0.9 Est GFR ( Amer) > 60 Est GFR (Non-Af Amer) > 60 Random Glucose 91 Calcium 8.9 Phosphorus 3.8 Magnesium 2.1 Total Bilirubin 0.9 AST 28 ALT 20 Alkaline Phosphatase 42 Total Protein 6.7 Albumin 3.9 Globulin 2.9 Albumin/Globulin Ratio 1.4 Blood Type O POSITIVE Antibody Screen Negative Attending/Attestation - Attestation I have personally seen and examined this patient.: Yes I have fully participated in the care of the patient.: Yes I have reviewed all pertinent clinical information: Yes Notes (Text): 12/10/17 07:19 Today: Friday, December 10, 2017 The Patient was seen and examined at the bedside, Medical records reviewed, and management issues were discussed and formulated with the house staff. I have reviewed all the relevant clinical, laboratory, hemodynamic, radiographic data and medications Events reviewed Pain issues, skin care, head of the bed elevation, glycemic control were addressed. Agree with above resident's assessment and treatment plans of care as transcribed in Dr. Kwon's note.
[2017-12-10 06:23] LABS: BASO # 0.1 K/uL (0.0-0.2); BASO % 0.8 % (0.0-2.0); EOS # 0.1 K/uL (0.0-0.7); EOS % 2.1 % (0.0-4.0); HEMOGLOBIN 11.8 g/dL (11.0-16.0); LYMPH # 1.9 K/uL (1.0-4.3); LYMPH % 29.4 % (20.0-40.0); MEAN CELL VOLUME 94.2 fL (81.0-99.0); MEAN CORPUSCULAR HEMOGLOBIN 32.6 pg (27.0-31.0); MEAN CORPUSCULAR HGB CONC 34.6 g/dL (33.0-37.0); MEAN PLATELET VOLUME 8.7 fL (7.2-11.7); MONO # 0.7 K/uL (0.0-0.8); MONO % 10.3 % (0.0-10.0); NEUT # 3.6 K/uL (1.8-7.0); NEUT % 57.4 % (50.0-75.0); RBC 3.61 Mil/uL (3.80-5.20); RED CELL DISTRIBUTION WIDTH 12.9 % (11.5-14.5); WHITE BLOOD COUNT 6.4 K/uL (4.8-10.8)
[2017-12-10 06:30] LABS: ALB/GLOB RATIO 1.4 (1.0-2.1); ALBUMIN 3.9 g/dL (3.5-5.0); ALT/SGPT 20 U/L (9-52); AST/SGOT 28 U/L (14-36); BLOOD UREA NITROGEN 18 mg/dL (7-17); CALCIUM 8.9 mg/dl (8.6-10.4); GFR NON-AFRICAN AMERICAN > 60
[2017-12-10] MEDS ORDERED: Valproate 500 MG in Sodium Chloride 0.9% 100 ML IVPB ONE (07:30)
[2017-12-10] MEDS: Magnesium Sulfate 1 gm in D5W 1 GM/100 ML BAG IVPB SCH ×4 (07:44→14:51)
--- NOTE | 2017-12-10 09:06 | CP.PCM.PN ---
Subjective - Date & Time of Evaluation Date of Evaluation: 12/10/17 Time of Evaluation: 09:05 - Subjective Subjective: s/p fall original ct was read as parafalcine sdh repeat it is about same it is possible this really is calcified falx regardless no surgical tx indicated from my point of view can be d/c Objective - Vital Signs/Intake and Output Vital Signs (last 24 hours): Temp Pulse Resp BP Pulse Ox 98.3 F 76 12 137/70 96 12/10/17 08:00 12/10/17 08:00 12/10/17 08:00 12/10/17 07:53 12/10/17 08:00 Intake and Output: 12/10/17 12/10/17 06:59 18:59 Intake Total 100 120 Output Total 700 Balance -600 120 - Medications Medications: Current Medications Acetaminophen (Tylenol 325mg Tab) 650 mg PO Q6 PRN PRN Reason: Pain, moderate (4-7) Magnesium Sulfate/Dextrose (Magnesium Sulfate 1 Gm/100 Ml D5w) 1 gm in 100 mls @ 200 mls/hr IVPB Q30M JONATHAN Stop: 12/10/17 09:29 Last Admin: 12/10/17 08:19 Dose: 200 mls/hr - Labs Labs: 12/10/17 06:13 12/10/17 06:13 PT 11.3 SECONDS (9.7-12.2) 12/09/17 20:53 INR 1.0 12/09/17 20:53 APTT 29 SECONDS (21-34) 12/09/17 20:53
--- NOTE | 2017-12-10 09:47 | CT ---
Date of service: 12/10/2017 PROCEDURE: CT HEAD WITHOUT CONTRAST. HISTORY: subdural hemorrhage COMPARISON: Noncontrast head CT 12/09/2017. TECHNIQUE: Axial computed tomography images were obtained through the head/brain without intravenous contrast. Radiation dose: Total exam DLP = 1075.19 mGy-cm. This CT exam was performed using one or more of the following dose reduction techniques: Automated exposure control, adjustment of the mA and/or kV according to patient size, and/or use of iterative reconstruction technique. FINDINGS: HEMORRHAGE: A small thin subdural hematoma is stable at the anterior falx and has not improved or worsened. No new hemorrhage is seen separate to this location throughout the intracranial space. BRAIN: No mass effect or edema. Stable limited age-related neuro degenerative findings are appreciated comprised of atrophy and microangiopathy as previously described. VENTRICLES: Unremarkable. No hydrocephalus. CALVARIUM: Unremarkable. PARANASAL SINUSES: Unremarkable as visualized. No significant inflammatory changes. MASTOID AIR CELLS: Unremarkable as visualized. No inflammatory changes. OTHER FINDINGS: None. IMPRESSION: Stable head CT including minimal anterior right parafalcine subdural hematoma. No additional acute intracranial findings in the interval. Stable age related neuro degenerative findings are appreciate. Follow-up CT advised.
--- NOTE | 2017-12-10 10:29 | CT ---
Date of service: 12/09/2017 PROCEDURE: CT HEAD WITHOUT CONTRAST. HISTORY: fall with laceration COMPARISON: MRI brain dated dated 11/20/2015. TECHNIQUE: Axial computed tomography images were obtained through the head/brain without intravenous contrast. Radiation dose: Total exam DLP = 1114 mGy-cm. This CT exam was performed using one or more of the following dose reduction techniques: Automated exposure control, adjustment of the mA and/or kV according to patient size, and/or use of iterative reconstruction technique. FINDINGS: HEMORRHAGE: Right parafalcine subdural hemorrhage. BRAIN: No mass effect or edema. Atrophy. Chronic microvascular ischemic changes. VENTRICLES: Unremarkable. No hydrocephalus. CALVARIUM: Unremarkable. PARANASAL SINUSES: Right sphenoid sinus secretions. MASTOID AIR CELLS: Unremarkable as visualized. No inflammatory changes. OTHER FINDINGS: Right parietal scalp laceration with few foci of subcutaneous gas. IMPRESSION: Acute right parafalcine subdural hemorrhage. Small right parietal scalp laceration with associated subcutaneous gas. No calvarial fracture.
--- NOTE | 2017-12-10 13:01 | CP.PCM.CON ---
<Jimbo Flood - Last Filed: 12/10/17 14:55> History of Present Illness - History of Present Illness History of Present Illness: Patient is a 72 year old female with a past medical history of Parkinson's, peripheral neuropathy, arthritis and osteoporosis who presented to the emergency room s/p fall due to unsteady gait. She stated "shaking" in her legs caused her to lose balance and fall. She fell backward and hit her head on the curb and sustained a laceration to the back of her head. She experiences tremors in her legs periodically which causes her legs to buckle at random times. She believes her tremors are getting worse and is frustrated her home medications have not improved them. She normally ambulates with a walker but states a cane would be better as the walker impedes her ability to ambulate. Her neurologist is Dr Bentley from [place]. She denied any LOC, focal deficits, slurred speech, preceding aura, tongue biting, weakness. Neurologist: Dr Bentley PMH: Parkinson's, peripheral neuropathy, arthritis and osteoporosis PSH: Appendectomy, [place] Social: Denies tobacco, alcohol or illicit drug use. Allergies: Clarithromycin and Iodine Meds: (states she is compliant with all home medications) * Carbidopa-Levodopa 10-100mg PO TID * Protonix 40mg PO daily * Gabapentin 300mg PO TID * Simvastatin 20mg PO HS * Neupro 4mg/24hr patch TD daily * Alendronate 70mg PO qWK * Requip (Ropinirole HCl) 2mg TID Review of Systems - Constitutional Constitutional: absent: Chills, Fatigue, Fever, Weakness - EENT Eyes: absent: Change in Vision - Cardiovascular Cardiovascular: absent: Chest Pain - Respiratory Respiratory: absent: Dyspnea - Gastrointestinal Gastrointestinal: absent: Diarrhea - Genitourinary Genitourinary: absent: Dysuria - Musculoskeletal Musculoskeletal: Back Pain - Integumentary Integumentary: absent: Changing Lesions - Neurological Neurological: absent: Dizziness Past Patient History - Infectious Disease Hx of Infectious Diseases: None - Past Medical History & Family History Past Medical History?: Yes - Past Social History Smoking Status: Never Smoked - CARDIAC Hx Hypercholesterolemia: Yes - PULMONARY Hx Respiratory Disorders: No - NEUROLOGICAL Hx Parkinson's Disease: Yes Hx Transient Ischemic Attacks (TIA): Yes - HEENT Hx HEENT Problems: Yes Hx Cataracts: Yes (HX OF RACHEL. SURGERY) - RENAL Hx Chronic Kidney Disease: No - ENDOCRINE/METABOLIC Hx Endocrine Disorders: No - HEMATOLOGICAL/ONCOLOGICAL Hx Human Immunodeficiency Virus (HIV): No - INTEGUMENTARY Hx Dermatological Problems: No - MUSCULOSKELETAL/RHEUMATOLOGICAL Hx Arthritis: Yes Hx Osteoporosis: Yes - GASTROINTESTINAL Hx Diverticulitis: Yes Hx Gall Bladder Disease: No Hx Gastritis: No Hx Pancreatitis: No - GENITOURINARY/GYNECOLOGICAL Hx Genitourinary Disorders: No - PSYCHIATRIC Hx Anxiety: Yes Hx Substance Use: No - SURGICAL HISTORY Hx Appendectomy: Yes Hx Cholecystectomy: Yes - ANESTHESIA Hx Anesthesia: Yes Hx Anesthesia Reactions: Yes (delayed awakening) Hx Malignant Hyperthermia: No Meds Allergies/Adverse Reactions: Allergies Allergy/AdvReac Type Severity Reaction Status Date / Time clarithromycin Allergy NAUSEA Verified 12/09/17 11:08 iodine Allergy SWELLING Verified 12/09/17 11:08 - Medications Medications: Current Medications Acetaminophen (Tylenol 325mg Tab) 650 mg PO Q6 PRN PRN Reason: Pain, moderate (4-7) Last Admin: 12/10/17 09:47 Dose: 650 mg Physical Exam - Additional Findings Additional findings: - Constitutional Appears: Non-toxic, No Acute Distress, Chronically Ill - Head Exam Head Exam: absent: ATRAUMATIC Additional comments: sutures on posterior portion of scalp - Eye Exam Eye Exam: EOMI, Normal appearance, PERRL Pupil Exam: NORMAL ACCOMODATION, PERRL - ENT Exam ENT Exam: Mucous Membranes Moist - Neck Exam Neck exam: Positive for: Full Rom, Normal Inspection. Negative for: Lymphadenopathy, Tenderness - Respiratory Exam Respiratory Exam: Clear to Auscultation Bilateral, NORMAL BREATHING PATTERN. absent: Accessory Muscle Use, Rales, Rhonchi, Wheezes, Respiratory Distress - Cardiovascular Exam Cardiovascular Exam: REGULAR RHYTHM, +S1, +S2. absent: JVD - GI/Abdominal Exam GI & Abdominal Exam: Normal Bowel Sounds, Soft. absent: Distended, Firm, Guarding, Rebound, Rigid, Tenderness - Extremities Exam Extremities exam: Positive for: pedal pulses present. Negative for: calf tenderness, pedal edema Additional comments: motor strength 4/5 in LE b/l. - Back Exam Back exam: NORMAL INSPECTION. absent: muscle spasm, paraspinal tenderness, tenderness, vertebral tenderness - Neurological Exam Neurological exam: Alert, CN II-XII Intact, Oriented x3 - Expanded Neurological Exam Expanded Patient oriented to: person, place, time Speech: Fluid Speech Cranial nerves: EOM's Intact: Normal, Facial Palsey w/Forehead Movement: Normal , Facial Palsey w/o Forehead Movement: Normal, Facial Sensation: Normal, Nystagmus: Normal, Tongue Deviation: Normal Cerebellar Function: Finger to Nose: Normal, Heel to Mena: Normal Upper motor neuron: Babinski Sign: Normal, Pronator Drift: Normal Sensory exam: Lower Extremity Light Touch: Abnormal Left (increased on left, per pt, this is normal for her 2/2 fibromyalgia), Upper Extremity Light Touch: Normal Neuro motor strength exam: Left Upper Extremity: 5, Right Upper Extremity: 5, Left Lower Extremity: 4 (baseline for pt), Right Lower Extremity: 4 (baseline for pt) Coma Scale Eye Opening: SPONTANEOUS, To Voice Coma Scale Motor Response: OBEYS COMMANDS Coma Scale Verbal: Oriented Coma Scale Total: 18 - Psychiatric Exam Psychiatric exam: Normal Affect, Normal Mood - Skin Skin Exam: Dry, Warm Results - Vital Signs Recent Vital Signs: Last Vital Signs Temp 98 F 12/10/17 12:00 Pulse 80 12/10/17 12:10 Resp 15 12/10/17 12:10 BP 144/66 12/10/17 12:06 Pulse Ox 95 12/10/17 12:10 - Labs Result Diagrams: 12/10/17 06:13 12/10/17 06:13 Labs: Laboratory Results - last 24 hr 12/09/17 12/09/17 12/09/17 20:53 20:53 20:53 WBC 7.7 RBC 3.92 Hgb 12.5 Hct 37.0 MCV 94.5 MCH 31.9 H MCHC 33.7 RDW 13.0 Plt Count 240 MPV 8.4 Neut % (Auto) 65.4 Lymph % (Auto) 24.2 [place] % (Auto) 9.3 Eos % (Auto) 0.7 Baso % (Auto) 0.4 Neut # (Auto) 5.0 Lymph # (Auto) 1.9 [place] # (Auto) 0.7 Eos # (Auto) 0.1 Baso # (Auto) 0.0 PT 11.3 INR 1.0 APTT 29 Sodium 140 Potassium 4.2 Chloride 103 Carbon Dioxide 28 Anion Gap 14 BUN 21 H Creatinine 1.1 Est GFR ( Amer) 59 Est GFR (Non-Af Amer) 49 Random Glucose 104 Calcium 9.7 Phosphorus Magnesium Total Bilirubin AST ALT Alkaline Phosphatase Total Protein Albumin Globulin Albumin/Globulin Ratio Blood Type Antibody Screen 12/09/17 12/10/17 12/10/17 20:53 06:13 06:13 WBC 6.4 RBC 3.61 L Hgb 11.8 Hct 34.1 MCV 94.2 MCH 32.6 H MCHC 34.6 RDW 12.9 Plt Count 210 MPV 8.7 Neut % (Auto) 57.4 Lymph % (Auto) 29.4 [place] % (Auto) 10.3 H Eos % (Auto) 2.1 Baso % (Auto) 0.8 Neut # (Auto) 3.6 Lymph # (Auto) 1.9 [place] # (Auto) 0.7 Eos # (Auto) 0.1 Baso # (Auto) 0.1 PT INR APTT Sodium 146 Potassium 4.1 Chloride 105 Carbon Dioxide 27 Anion Gap 17 BUN 18 H Creatinine 0.9 Est GFR ( Amer) > 60 Est GFR (Non-Af Amer) > 60 Random Glucose 91 Calcium 8.9 Phosphorus 3.8 Magnesium 2.1 Total Bilirubin 0.9 AST 28 ALT 20 Alkaline Phosphatase 42 Total Protein 6.7 Albumin 3.9 Globulin 2.9 Albumin/Globulin Ratio 1.4 Blood Type O POSITIVE Antibody Screen Negative Assessment & Plan - Assessment and Plan (Free Text) Plan: 72 year old female with a PMHX of Parkinson's, peripheral neuropathy, arthritis and osteoporosis who presented to the emergency room s/p fall due to unsteady gait. Fall 2/2 to advancing Parkinson's Initial CT head and repeat CT head reviewed by Dr Covington, we doubt hematoma especially in context of her clinical symptoms - imaging more indicative of a heavily calcified falx. Patient received 1 dose valproate 500mg inj Will order for 1 dose decadron 10mg Toradol 15mg IVP once to treat headache Avoid antiplatelet agents for 1 week although doubt hematoma Ok to resume home medications Follow-up with patient's neurologist Dr Bentley within 1 week to address worsening parkinson's Case discussed with Neurologist Dr Covington <Darien Covington - Last Filed: 12/10/17 19:38> Meds - Medications Medications: Current Medications Acetaminophen (Tylenol 325mg Tab) 650 mg PO Q6 PRN PRN Reason: Pain, moderate (4-7) Last Admin: 12/10/17 09:47 Dose: 650 mg Carbidopa/Levodopa (Sinemet 10/100) 1 tab PO BID JONATHAN Gabapentin (Neurontin) 300 mg PO DAILY JONATHAN Primidone (Mysoline) 50 mg PO HS JONATHAN Rosuvastatin Calcium (Crestor) 5 mg PO HS JONATHAN Results - Vital Signs Recent Vital Signs: Last Vital Signs Temp 98.2 F 12/10/17 15:46 Pulse 80 12/10/17 18:10 Resp 19 12/10/17 18:10 BP 120/52 L 12/10/17 16:07 Pulse Ox 97 12/10/17 15:46 - Labs Result Diagrams: 12/10/17 06:13 12/10/17 06:13 Labs: Laboratory Results - last 24 hr 12/09/17 12/09/17 12/09/17 20:53 20:53 20:53 WBC 7.7 RBC 3.92 Hgb 12.5 Hct 37.0 MCV 94.5 MCH 31.9 H MCHC 33.7 RDW 13.0 Plt Count 240 MPV 8.4 Neut % (Auto) 65.4 Lymph % (Auto) 24.2 [place] % (Auto) 9.3 Eos % (Auto) 0.7 Baso % (Auto) 0.4 Neut # (Auto) 5.0 Lymph # (Auto) 1.9 [place] # (Auto) 0.7 Eos # (Auto) 0.1 Baso # (Auto) 0.0 PT 11.3 INR 1.0 APTT 29 Sodium 140 Potassium 4.2 Chloride 103 Carbon Dioxide 28 Anion Gap 14 BUN 21 H Creatinine 1.1 Est GFR ( Amer) 59 Est GFR (Non-Af Amer) 49 Random Glucose 104 Calcium 9.7 Phosphorus Magnesium Total Bilirubin AST ALT Alkaline Phosphatase Total Protein Albumin Globulin Albumin/Globulin Ratio Urine Color Urine Clarity Urine pH Ur Specific [place] Urine Protein Urine Glucose (UA) Urine Ketones Urine Blood Urine Nitrate Urine Bilirubin Urine Urobilinogen Ur Leukocyte Esterase Urine WBC (Auto) Urine RBC (Auto) Ur Squamous Epith Cells Urine Bacteria Blood Type Antibody Screen 12/09/17 12/10/17 12/10/17 20:53 06:13 06:13 WBC 6.4 RBC 3.61 L Hgb 11.8 Hct 34.1 MCV 94.2 MCH 32.6 H MCHC 34.6 RDW 12.9 Plt Count 210 MPV 8.7 Neut % (Auto) 57.4 Lymph % (Auto) 29.4 [place] % (Auto) 10.3 H Eos % (Auto) 2.1 Baso % (Auto) 0.8 Neut # (Auto) 3.6 Lymph # (Auto) 1.9 [place] # (Auto) 0.7 Eos # (Auto) 0.1 Baso # (Auto) 0.1 PT INR APTT Sodium 146 Potassium 4.1 Chloride 105 Carbon Dioxide 27 Anion Gap 17 BUN 18 H Creatinine 0.9 Est GFR ( Amer) > 60 Est GFR (Non-Af Amer) > 60 Random Glucose 91 Calcium 8.9 Phosphorus 3.8 Magnesium 2.1 Total Bilirubin 0.9 AST 28 ALT 20 Alkaline Phosphatase 42 Total Protein 6.7 Albumin 3.9 Globulin 2.9 Albumin/Globulin Ratio 1.4 Urine Color Urine Clarity Urine pH Ur Specific [place] Urine Protein Urine Glucose (UA) Urine Ketones Urine Blood Urine Nitrate Urine Bilirubin Urine Urobilinogen Ur Leukocyte Esterase Urine WBC (Auto) Urine RBC (Auto) Ur Squamous Epith Cells Urine Bacteria Blood Type O POSITIVE Antibody Screen Negative 12/10/17 18:17 WBC RBC Hgb Hct MCV MCH MCHC RDW Plt Count MPV Neut % (Auto) Lymph % (Auto) [place] % (Auto) Eos % (Auto) Baso % (Auto) Neut # (Auto) Lymph # (Auto) [place] # (Auto) Eos # (Auto) Baso # (Auto) PT INR APTT Sodium Potassium Chloride Carbon Dioxide Anion Gap BUN Creatinine Est GFR ( Amer) Est GFR (Non-Af Amer) Random Glucose Calcium Phosphorus Magnesium Total Bilirubin AST ALT Alkaline Phosphatase Total Protein Albumin Globulin Albumin/Globulin Ratio Urine Color Yellow Urine Clarity Clear Urine pH 6.0 Ur Specific [place] 1.006 Urine Protein Negative Urine Glucose (UA) Normal Urine Ketones Trace Urine Blood Negative Urine Nitrate Negative Urine Bilirubin Negative Urine Urobilinogen Normal Ur Leukocyte Esterase Neg Urine WBC (Auto) 1 Urine RBC (Auto) 1 Ur Squamous Epith Cells 1 Urine Bacteria Rare Blood Type Antibody Screen Attending/Attestation - Attestation I have personally seen and examined this patient.: Yes I have fully participated in the care of the patient.: Yes I have reviewed all pertinent clinical information: Yes Notes (Text): 12/10/17 19:38 On my exam, the patient complained of headache, but was AAOX3, no aphasia/ dysarthria, CN 2-12 were intact, full strength, normal coordination, sensation was normal, reflexes normal, gait not assessed.
--- NOTE | 2017-12-10 17:29 | CP.PCM.PN ---
Subjective - Date & Time of Evaluation Date of Evaluation: 12/10/17 Time of Evaluation: 17:28 - Subjective Subjective: complains of back pain 5/10 new old heel pain right lower ext Objective - Vital Signs/Intake and Output Vital Signs (last 24 hours): Temp Pulse Resp BP Pulse Ox 98.2 F 80 15 120/52 L 97 12/10/17 15:46 12/10/17 17:00 12/10/17 17:00 12/10/17 16:07 12/10/17 15:46 Intake and Output: 12/10/17 12/10/17 06:59 18:59 Intake Total 100 900 Output Total 700 1000 Balance -600 -100 - Medications Medications: Current Medications Acetaminophen (Tylenol 325mg Tab) 650 mg PO Q6 PRN PRN Reason: Pain, moderate (4-7) Last Admin: 12/10/17 09:47 Dose: 650 mg - Labs Labs: 12/10/17 06:13 12/10/17 06:13 PT 11.3 SECONDS (9.7-12.2) 12/09/17 20:53 INR 1.0 12/09/17 20:53 APTT 29 SECONDS (21-34) 12/09/17 20:53 - Constitutional Appears: Well, Non-toxic, No Acute Distress - Head Exam Additional comments: scalp hematoma stitches - Respiratory Exam Respiratory Exam: Clear to Ausculation Bilateral, NORMAL BREATHING PATTERN. absent: Accessory Muscle Use - Cardiovascular Exam Cardiovascular Exam: REGULAR RHYTHM - GI/Abdominal Exam GI & Abdominal Exam: Soft, Normal Bowel Sounds. absent: Tenderness - Neurological Exam Neurological Exam: Alert, Awake, Oriented x3 Neuro motor strength exam: Left Upper Extremity: 5, Right Upper Extremity: 5, Left Lower Extremity: 5, Right Lower Extremity: 5 - Additional Findings Additional findings: limited rom right shoulder due to arthritic pain bruising eechymosis right scapular area Assessment and Plan - Assessment and Plan (Free Text) Assessment: New fall with head trauma small sdh /calcification History of falls Parkinsons Plan: monitor no ac/anti platelet physical therapy cont home meds consider rehab check ua cont home meds for parkinsons spoke with family daughter at bedside check x ray spine
[2017-12-10 18:45] LABS: SQUAMOUS EPITHIAL 1 /hpf (0-5); URINE BACTERIA RARE (<OCC); URINE BILIRUBIN NEGATIVE (NEGATIVE); URINE BLOOD NEGATIVE (NEGATIVE); URINE CLARITY Clear (Clear); URINE COLOR Yellow (YELLOW); URINE GLUCOSE (UA) NORMAL (Normal); URINE LEUKOCYTE ESTERASE NEG Leu/uL (Negative); URINE PROTEIN NEGATIVE (NEGATIVE); URINE UROBILINOGEN NORMAL mg/dL (0.2-1.0)
[2017-12-11 06:44] LABS: BASO % 0.1 % (0.0-2.0); HEMOGLOBIN 13.5 g/dL (11.0-16.0); LYMPH # 1.1 K/uL (1.0-4.3); LYMPH % 10.6 % (20.0-40.0); MEAN CELL VOLUME 92.6 fL (81.0-99.0); MEAN CORPUSCULAR HEMOGLOBIN 32.6 pg (27.0-31.0); MEAN CORPUSCULAR HGB CONC 35.2 g/dL (33.0-37.0); MONO # 0.2 K/uL (0.0-0.8); MONO % 1.5 % (0.0-10.0); NEUT % 87.8 % (50.0-75.0); RBC 4.13 Mil/uL (3.80-5.20); RED CELL DISTRIBUTION WIDTH 12.9 % (11.5-14.5); WHITE BLOOD COUNT 10.3 K/uL (4.8-10.8)
[2017-12-11 07:02] LABS: ALB/GLOB RATIO 1.5 (1.0-2.1); ALBUMIN 4.8 g/dL (3.5-5.0); ALT/SGPT 15 U/L (9-52); AST/SGOT 28 U/L (14-36); BLOOD UREA NITROGEN 26 mg/dL (7-17); CALCIUM 9.8 mg/dl (8.6-10.4); GFR NON-AFRICAN AMERICAN > 60
--- NOTE | 2017-12-11 07:44 | RAD ---
Date of service: 12/10/2017 PROCEDURE: HISTORY: hx of fall COMPARISON: None TECHNIQUE: Two views FINDINGS: No fracture or dislocation seen. Acromioclavicular and glenohumeral joint arthrosis. Probable small bone islands over humeral head. An element of concomitant calcific rotator cuff tendinitis and/or bursitis not entirely excluded per available images. IMPRESSION: No fracture or dislocation. Arthrosis
--- NOTE | 2017-12-11 07:46 | RAD ---
Date of service: 12/10/2017 PROCEDURE: Radiographs of the Lumbar Spine. HISTORY: hx of fall COMPARISON: No prior. FINDINGS: BONES: Normal alignment. No listhesis. No fracture. Generalized osteopenia. Mild endplate spondylosis. Schmorl's are L3 and L2 DISC SPACES: Unremarkable. OTHER FINDINGS: Atherosclerotic vascular calcifications present. IMPRESSION: No fracture. Or gross subluxation. Degenerative changes as above
--- NOTE | 2017-12-11 07:50 | RAD ---
Date of service: 12/10/2017 HISTORY: hx of fall COMPARISON: No prior. FINDINGS: BONES: Generalized osteopenia and kyphosis noted both limits optimal evaluation. On the oblique distal lateral available view there is mild probably degenerative type anterior wedging of the mid to upper thoracic spine. No comparisons are available to assess stability. This also some leftward convexity to the thoracolumbar spine. DISC SPACES: Normal. SOFT TISSUES: Normal. OTHER FINDINGS: None. IMPRESSION: Generalized osteopenia, mild scoliosis and kyphosis. Probable degenerative type wedging of the mid thoracic mid and upper thoracic spine segment No definitive gross the thoracic fracture appreciated
--- NOTE | 2017-12-11 07:54 | RAD ---
Date of service: 12/10/2017 PROCEDURE: Cervical Spine Radiographs. HISTORY: Pain. COMPARISON: None. FINDINGS: BONES: Generalized osteopenia. No gross fracture of C1 through C6 is seen. The C7 cervical vertebrae and posterior elements are not clearly identified on this exam. On the oblique lateral thoracic spine- no gross C7 vertebral body compression fracture bleed present. DISC SPACES: Normal. SOFT TISSUES: . No prevertebral soft tissue swelling. OTHER FINDINGS: None. IMPRESSION: Limited exam for reasons stated above. No gross fracture on the cervical spine study of C1 thru C6 appreciated. If further evaluation is needed consider CT cervical spine. Would also consider CT thoracic spine given the marked limitation in the lateral view patient's limited ability to cooperate.
[2017-12-11] MEDS: Pantoprazole 40 mg EC Tab PO SCH (09:45)
--- NOTE | 2017-12-11 12:38 | CP.PCM.PN ---
Subjective - Date & Time of Evaluation Date of Evaluation: 12/11/17 Time of Evaluation: 12:30 - Subjective Subjective: Medical Attending Note: Patient seen and examined at bedside with [id number]. Patient seen working with physical therapy prior to my arrival. Per daughter in law, patient is doing better. Patient is eating lunch at bedside. Denies headache, denies chest pain, denies palptiations, denies nausea, denies vomitting, denies abdominal pain, denies dysuria, denies hematuria, and. denies constipation. Objective - Vital Signs/Intake and Output Vital Signs (last 24 hours): Temp Pulse Resp BP Pulse Ox 97.9 F 88 16 120/56 L 97 12/11/17 07:34 12/11/17 12:05 12/11/17 12:05 12/11/17 12:06 12/11/17 07:34 Intake and Output: 12/11/17 12/11/17 06:59 18:59 Intake Total 240 240 Output Total 500 50 Balance -260 190 - Medications Medications: Current Medications Acetaminophen (Tylenol 325mg Tab) 650 mg PO Q6 PRN PRN Reason: Pain, moderate (4-7) Last Admin: 12/10/17 21:00 Dose: 650 mg Carbidopa/Levodopa (Sinemet 10/100) 1 tab PO BID [facility] Last Admin: 12/11/17 09:45 Dose: 1 tab Gabapentin (Neurontin) 300 mg PO DAILY [facility] Last Admin: 12/11/17 09:45 Dose: 300 mg Pantoprazole Sodium (Protonix Ec Tab) 40 mg PO DAILY [facility] Last Admin: 12/11/17 09:45 Dose: 40 mg Primidone (Mysoline) 50 mg PO [facility] Last Admin: 12/10/17 21:00 Dose: 50 mg Rosuvastatin Calcium (Crestor) 5 mg PO [facility] Last Admin: 12/10/17 21:00 Dose: 5 mg - Labs Labs: 12/11/17 06:41 12/11/17 06:41 PT 11.3 SECONDS (9.7-12.2) 12/09/17 20:53 INR 1.0 12/09/17 20:53 APTT 29 SECONDS (21-34) 12/09/17 20:53 - Constitutional Appears: Non-toxic, No Acute Distress - Head Exam Head Exam: NORMAL INSPECTION - Eye Exam Eye Exam: EOMI - ENT Exam ENT Exam: Mucous Membranes Moist - Respiratory Exam Respiratory Exam: Clear to Ausculation Bilateral, NORMAL BREATHING PATTERN. absent: Rales, Rhonchi, Wheezes - Cardiovascular Exam Cardiovascular Exam: REGULAR RHYTHM, +S1, +S2 - GI/Abdominal Exam GI & Abdominal Exam: Soft, Normal Bowel Sounds. absent: Distended, Firm, Guarding, Rigid, Tenderness, Rebound - Extremities Exam Extremities Exam: absent: Pedal Edema (non-pitting) - Back Exam Back Exam: absent: CVA tenderness (L), CVA tenderness (R) - Neurological Exam Neurological Exam: Alert, Awake, Oriented x3 - Skin Skin Exam: Dry, Normal Color, Warm Assessment and Plan (1) Fall Assessment & Plan: PT/OT eval Neurochecks Q4H Neurosurgery (Dr. Cox) on case-->help appreciated * s/p fall; original ct was read as parafalcine sdh; repeat it is about same * it is possible this really is calcified falx * regardless no surgical tx indicated from my point of view can be d/c Neurology (Dr. Covington) on case-->help appreciated * Initial CT head and repeat CT head reviewed by Dr Covington, we doubt hematoma especially in context of her clinical symptoms - imaging more indicative of a heavily calcified falx. * Patient received 1 dose valproate 500mg inj * Will order for 1 dose decadron 10mg * Toradol 15mg IVP once to treat headache * Avoid antiplatelet agents for 1 week although doubt hematoma * Ok to resume home medications * Follow-up with patient's neurologist Dr Bentley within 1 week to address worsening parkinson's Imaging: CT Head (12/10/17): acute right parafalacine subdural hemorrhage. Small right parietal scalp laceration with associated subcutaneous gas. No calvarial fracture. CT Head (12/10/17): Stable head ct including minimal anterior right parafalcine subdural hematoma. No additional acute intracranial findings in the interval. Stable age related neuro degenerative findings are appreciate. Cervical spine (12/11/17): no gross fracture on the cervical spine study C1-C6 Lumbar spine (12/10/17): no fracture. or gross subluxation. Thoracic spine (12/11/17): generalized osteopenia, mild scoliosis and kyphosis. probable degenerative type wedging of the mid thoracic mid and upper thoracic spine segment. No definitive gross the thoracic fracture appreciated. Scapula xray (12/10/17): no fracture or dislocation. Arhrosis. Status: Acute (2) Subdural hemorrhage Assessment & Plan: Neurosurgery (Dr. Cox) on case-->help appreciated * s/p fall; original ct was read as parafalcine sdh; repeat it is about same * it is possible this really is calcified falx * regardless no surgical tx indicated from my point of view can be d/c Neurology (Dr. Covington) on case-->help appreciated * Initial CT head and repeat CT head reviewed by Dr Covington, we doubt hematoma especially in context of her clinical symptoms - imaging more indicative of a heavily calcified falx. * Patient received 1 dose valproate 500mg inj * Will order for 1 dose decadron 10mg * Toradol 15mg IVP once to treat headache * Avoid antiplatelet agents for 1 week although doubt hematoma * Ok to resume home medications * Follow-up with patient's neurologist Dr Bentley within 1 week to address worsening parkinson's Imaging: CT Head (12/10/17): acute right parafalacine subdural hemorrhage. Small right parietal scalp laceration with associated subcutaneous gas. No calvarial fracture. CT Head (12/10/17): Stable head ct including minimal anterior right parafalcine subdural hematoma. No additional acute intracranial findings in the interval. Stable age related neuro degenerative findings are appreciate. Cervical spine (12/11/17): no gross fracture on the cervical spine study C1-C6 Lumbar spine (12/10/17): no fracture. or gross subluxation. Thoracic spine (12/11/17): generalized osteopenia, mild scoliosis and kyphosis. probable degenerative type wedging of the mid thoracic mid and upper thoracic spine segment. No definitive gross the thoracic fracture appreciated. Scapula xray (12/10/17): no fracture or dislocation. Arhrosis Status: Acute (3) Parkinson disease Assessment & Plan: Neurosurgery (Dr. Cox) on case-->help appreciated * s/p fall; original ct was read as parafalcine sdh; repeat it is about same * it is possible this really is calcified falx * regardless no surgical tx indicated from my point of view can be d/c Neurology (Dr. Covington) on case-->help appreciated * Initial CT head and repeat CT head reviewed by Dr Covington, we doubt hematoma especially in context of her clinical symptoms - imaging more indicative of a heavily calcified falx. * Patient received 1 dose valproate 500mg inj * Will order for 1 dose decadron 10mg * Toradol 15mg IVP once to treat headache * Avoid antiplatelet agents for 1 week although doubt hematoma * Ok to resume home medications * Follow-up with patient's neurologist Dr Bentley within 1 week to address worsening parkinson's Imaging: CT Head (12/10/17): acute right parafalacine subdural hemorrhage. Small right parietal scalp laceration with associated subcutaneous gas. No calvarial fracture. CT Head (12/10/17): Stable head ct including minimal anterior right parafalcine subdural hematoma. No additional acute intracranial findings in the interval. Stable age related neuro degenerative findings are appreciate. Sinemet 10/100 1 tab PO BID Primidone 50mg PO HS Status: Chronic (4) Peripheral neuropathy Assessment & Plan: Gabapentin 300mg PO TID Status: Chronic (5) Arthritis Assessment & Plan: nold NSAID/Aspirin secondary to subdural hemorrhage Status: Chronic (6) Prophylactic measure Assessment & Plan: Chemical anticoagulation containdicated secondary to subdural hemorrhage Protonix 40mg PO daily Status: Acute
[2017-12-12 06:14] LABS: BASO % 0.3 % (0.0-2.0); EOS % 0.3 % (0.0-4.0); HEMOGLOBIN 11.6 g/dL (11.0-16.0); LYMPH # 2.7 K/uL (1.0-4.3); MEAN CELL VOLUME 94.6 fL (81.0-99.0); MEAN CORPUSCULAR HEMOGLOBIN 32.5 pg (27.0-31.0); MEAN CORPUSCULAR HGB CONC 34.3 g/dL (33.0-37.0); MEAN PLATELET VOLUME 8.9 fL (7.2-11.7); MONO # 0.7 K/uL (0.0-0.8); MONO % 7.7 % (0.0-10.0); NEUT # 5.1 K/uL (1.8-7.0); NEUT % 59.7 % (50.0-75.0); RBC 3.58 Mil/uL (3.80-5.20); RED CELL DISTRIBUTION WIDTH 13.1 % (11.5-14.5); WHITE BLOOD COUNT 8.5 K/uL (4.8-10.8)
[2017-12-12 06:29] LABS: ALB/GLOB RATIO 1.4 (1.0-2.1); ALBUMIN 3.7 g/dL (3.5-5.0); ALT/SGPT 20 U/L (9-52); AST/SGOT 29 U/L (14-36); BLOOD UREA NITROGEN 24 mg/dL (7-17); CALCIUM 8.9 mg/dl (8.6-10.4); GFR NON-AFRICAN AMERICAN > 60
[2017-12-12] MEDS: Pantoprazole 40 mg EC Tab PO SCH (09:25)
--- NOTE | 2017-12-12 13:23 | CP.PCM.DIS ---
Provider - Provider Date of Admission: 12/09/17 20:42 Attending physician: Blanca Carvalho DO Time Spent in preparation of Discharge (in minutes): 45 Diagnosis - Discharge Diagnosis (1) Fall Status: Acute (2) Subdural hemorrhage Status: Acute Hospital Course - Lab Results Lab Results: Micro Results 12/10/17 18:00 Urine,Clean Catch Urine Culture - Final No Growth (<1,000 CFU/ML) Most Recent Lab Values WBC 8.5 K/uL (4.8-10.8) 12/12/17 06:02 RBC 3.58 Mil/uL (3.80-5.20) L 12/12/17 06:02 Hgb 11.6 g/dL (11.0-16.0) 12/12/17 06:02 Hct 33.9 % (34.0-47.0) L 12/12/17 06:02 MCV 94.6 fL (81.0-99.0) D 12/12/17 06:02 MCH 32.5 pg (27.0-31.0) H 12/12/17 06:02 MCHC 34.3 g/dL (33.0-37.0) 12/12/17 06:02 RDW 13.1 % (11.5-14.5) 12/12/17 06:02 Plt Count 218 K/uL (130-400) 12/12/17 06:02 MPV 8.9 fL (7.2-11.7) 12/12/17 06:02 Neut % (Auto) 59.7 % (50.0-75.0) 12/12/17 06:02 Lymph % (Auto) 32.0 % (20.0-40.0) 12/12/17 06:02 [place] % (Auto) 7.7 % (0.0-10.0) 12/12/17 06:02 Eos % (Auto) 0.3 % (0.0-4.0) 12/12/17 06:02 Baso % (Auto) 0.3 % (0.0-2.0) 12/12/17 06:02 Neut # (Auto) 5.1 K/uL (1.8-7.0) 12/12/17 06:02 Lymph # (Auto) 2.7 K/uL (1.0-4.3) 12/12/17 06:02 [place] # (Auto) 0.7 K/uL (0.0-0.8) 12/12/17 06:02 Eos # (Auto) 0.0 K/uL (0.0-0.7) 12/12/17 06:02 Baso # (Auto) 0.0 K/uL (0.0-0.2) 12/12/17 06:02 PT 11.3 SECONDS (9.7-12.2) 12/09/17 20:53 INR 1.0 12/09/17 20:53 APTT 29 SECONDS (21-34) 12/09/17 20:53 Sodium 139 mmol/L (132-148) 12/12/17 06:01 Potassium 4.2 mmol/L (3.6-5.2) 12/12/17 06:01 Chloride 101 mmol/L (98-107) 12/12/17 06:01 Carbon Dioxide 28 mmol/L (22-30) 12/12/17 06:01 Anion Gap 14 (10-20) 12/12/17 06:01 BUN 24 mg/dL (7-17) H 12/12/17 06:01 Creatinine 0.8 mg/dL (0.7-1.2) 12/12/17 06:01 Est GFR ( Amer) > 60 12/12/17 06:01 Est GFR (Non-Af Amer) > 60 12/12/17 06:01 Random Glucose 92 mg/dL (65-105) 12/12/17 06:01 Calcium 8.9 mg/dl (8.6-10.4) 12/12/17 06:01 Phosphorus 3.3 mg/dL (2.5-4.5) 12/12/17 06:01 Magnesium 1.9 mg/dL (1.6-2.3) 12/12/17 06:01 Total Bilirubin 0.6 mg/dL (0.2-1.3) 12/12/17 06:01 AST 29 U/L (14-36) 12/12/17 06:01 ALT 20 U/L (9-52) 12/12/17 06:01 Alkaline Phosphatase 39 U/L (38-126) 12/12/17 06:01 Total Protein 6.3 g/dL (6.3-8.3) 12/12/17 06:01 Albumin 3.7 g/dL (3.5-5.0) 12/12/17 06:01 Globulin 2.6 gm/dL (2.2-3.9) 12/12/17 06:01 Albumin/Globulin Ratio 1.4 (1.0-2.1) 12/12/17 06:01 Urine Color Yellow (YELLOW) 12/10/17 18:17 Urine Clarity Clear (Clear) 12/10/17 18:17 Urine pH 6.0 (5.0-8.0) 12/10/17 18:17 Ur Specific [place] 1.006 (1.003-1.030) 12/10/17 18:17 Urine Protein Negative mg/dL (NEGATIVE) 12/10/17 18:17 Urine Glucose (UA) Normal mg/dL (Normal) 12/10/17 18:17 Urine Ketones Trace mg/dL (NEGATIVE) 12/10/17 18:17 Urine Blood Negative (NEGATIVE) 12/10/17 18:17 Urine Nitrate Negative (NEGATIVE) 12/10/17 18:17 Urine Bilirubin Negative (NEGATIVE) 12/10/17 18:17 Urine Urobilinogen Normal mg/dL (0.2-1.0) 12/10/17 18:17 Ur Leukocyte Esterase Neg Wilfred/uL (Negative) 12/10/17 18:17 Urine WBC (Auto) 1 /hpf (0-5) 12/10/17 18:17 Urine RBC (Auto) 1 /hpf (0-3) 12/10/17 18:17 Ur Squamous Epith Cells 1 /hpf (0-5) 12/10/17 18:17 Urine Bacteria Rare (<OCC) 12/10/17 18:17 Blood Type O POSITIVE 12/09/17 20:53 Antibody Screen Negative 12/09/17 20:53 - Hospital Course Hospital Course: HPI: Patient is a 72 year old female with a past medical history of Parkinson's, peripheral neuropathy, arthritis and osteoporosis presenting to the emergency room s/p fall. Patient was walking with her walker earlier today when her leg started to shake and gave it. This caused her to fall backwards and hit her head on the curb with the walker landing on top of her. She sustained a laceration to the back of her head. She denies any LOC, vision changes, nausea or vomiting. She does not take any anti-coagulation. She reports a headaches but is feeling well otherwise. She experiences tremors in her legs periodically which causes her legs to buckle at random times. This is not a new finding. Patient is accompanied by a family member at bedside that states the patient is at her baseline. Hospital Course: On admission: CT head w/o contrast (12/09/17) performed and showed: Acute right parafalcine subdural hemorrhage, small right parietal scalp laceration with associated subcutaneous gas, no fractures (see full report); Patient was neurologically intact on initial physical exam and remained neurologically intact throughout the course of her hospital stay Laceration of posterior scalp was closed with sutures x3; Neuro, Neurosurgery consulted, patient moved to ICU Patient 20:[address] Covington, who is requesting q2 hour neuro checks and repeat CT head in am. 20:[address] Christie, who is requesting admission under the hospitalist service. 20:35 Spoke to body make up artist, Dr. Dozier, who was made aware of patient. 20:41 Dr. Monge accepts patient 21:13 Received call back from Dr. Story, who requests repeat CT scan at 08:00 tomorrow morning. In ICU: Repeat CT head w/o contrast (12/10/17) performed and showed: stable head CT including minimal anterior right parafalcine subdural hematoma. No additional acute intracranial findings (see full report) Cervical Spine X-ray (12/10/17) performed and showed: no gross fracture of C1 thru C6 appreciated (see full report) Thoracic Spine X-ray (12/10/17) performed and showed: no gross fracture, generalized osteopenia, mild scoliosis and kyphosis (see full report) Lumbar Spine X-ray (12/10/17) performed and showed: no fracture or gross subluxation (see full report) Scapula X-ray (12/10/17) performed and showed: no fracture or dislocation (see full report) Patient ambulated well with physical therapy and is in no acute distress. Continue patients Parkinsons home medication. Patient cleared for discharge to subacute rehabilitation center. Disclaimer: Written above is a synopsis of the hospital course, please refer to EMR for further details. Discharge Exam - Head Exam Head Exam: NORMAL INSPECTION Discharge Plan - Follow Up Plan Condition: CRITICAL Disposition: HOME/ ROUTINE Instructions: Preventing Falls in the Older Adult Additional Instructions: Patient is stable for discharge to subacute rehab per Dr. Carvalho as soon as there is a bed available. If symptoms reoccur or worsen please return to the ER. Please refrain from taking aspirin, NSAIDs (Naproxen, Motrin, Advil) or any blood thinners until follow up with a primary care physician.
--- NOTE | 2017-12-12 15:35 | CT ---
Date of service: 12/12/2017 PROCEDURE: CT HEAD WITHOUT CONTRAST. HISTORY: New onset blurry vision, L-side weakness COMPARISON: CT head dated 12/10/2017 TECHNIQUE: Axial computed tomography images were obtained through the head/brain without intravenous contrast. Radiation dose: Total exam DLP = 1087.0 mGy-cm. This CT exam was performed using one or more of the following dose reduction techniques: Automated exposure control, adjustment of the mA and/or kV according to patient size, and/or use of iterative reconstruction technique. FINDINGS: HEMORRHAGE: Interval decrease in amount of right parafalcine subdural hemorrhage. No new hemorrhage. BRAIN: No mass effect or edema. Atrophy. Chronic microvascular ischemic changes. VENTRICLES: Unremarkable. No hydrocephalus. CALVARIUM: Unremarkable. PARANASAL SINUSES: Unremarkable as visualized. No significant inflammatory changes. MASTOID AIR CELLS: Unremarkable as visualized. No inflammatory changes. OTHER FINDINGS: None. IMPRESSION: Interval decrease in amount of right parafalcine subdural hemorrhage. No new hemorrhage or other significant interval change.
--- NOTE | 2017-12-12 18:15 | CP.PCM.PN ---
<David Sher - Last Filed: 12/12/17 18:03> Subjective - Date & Time of Evaluation Date of Evaluation: 12/12/17 Time of Evaluation: 09:15 - Subjective Subjective: PGY-[address] Carvalho Patient seen and examined at bedside. Patient appears comfortable, slept well and is ready for discharge to [facility] pending placement. Pt is tolerating food PO. Patient denies any fevers, chills, nausea vomiting, headaches Patient has chronic occasional double vision 2/2 eye surgery complication. Objective - Vital Signs/Intake and Output Vital Signs (last 24 hours): Temp Pulse Resp BP Pulse Ox 97.7 F 79 21 115/73 98 12/12/17 16:00 12/12/17 16:00 12/12/17 16:00 12/12/17 16:00 12/12/17 16:00 Intake and Output: 12/12/17 12/12/17 06:59 18:59 Intake Total 480 300 Output Total 400 300 Balance 80 0 - Medications Medications: Current Medications Acetaminophen (Tylenol 325mg Tab) 650 mg PO Q6 PRN PRN Reason: Pain, moderate (4-7) Last Admin: 12/10/17 21:00 Dose: 650 mg Carbidopa/Levodopa (Sinemet 10/100) 1 tab PO BID [facility] Last Admin: 12/12/17 17:40 Dose: 1 tab Gabapentin (Neurontin) 300 mg PO DAILY [facility] Last Admin: 12/12/17 09:25 Dose: 300 mg Pantoprazole Sodium (Protonix Ec Tab) 40 mg PO DAILY [facility] Last Admin: 12/12/17 09:25 Dose: 40 mg Primidone (Mysoline) 50 mg PO [facility] Last Admin: 12/11/17 21:05 Dose: 50 mg Rosuvastatin Calcium (Crestor) 5 mg PO HS [facility] Last Admin: 12/11/17 21:00 Dose: 5 mg Sucralfate (Carafate Tab) 1 gm PO BID [facility] Last Admin: 12/12/17 17:39 Dose: 1 gm - Labs Labs: 12/12/17 06:02 12/12/17 06:01 PT 11.3 SECONDS (9.7-12.2) 12/09/17 20:53 INR 1.0 12/09/17 20:53 APTT 29 SECONDS (21-34) 12/09/17 20:53 - Head Exam Head Exam: NORMOCEPHALIC Additional comments: +1 inch laceration to back of skull. Tender to palpation over laceration, no tenderness surrounding. Sutured and healing well without exudates or erythema. - Eye Exam Eye Exam: EOMI, Normal appearance Pupil Exam: NORMAL ACCOMODATION - Respiratory Exam Respiratory Exam: Clear to Ausculation Bilateral, NORMAL BREATHING PATTERN - Cardiovascular Exam Cardiovascular Exam: REGULAR RHYTHM, +S1, +S2 - GI/Abdominal Exam GI & Abdominal Exam: Soft, Normal Bowel Sounds. absent: Tenderness - Neurological Exam Neurological Exam: Alert, Awake, CN II-XII Intact, Normal Gait, Oriented x3 Neuro motor strength exam: Left Upper Extremity: 5, Right Upper Extremity: 5, Left Lower Extremity: 5, Right Lower Extremity: 5 - Psychiatric Exam Psychiatric exam: Normal Affect, Normal Mood - Skin Skin Exam: Dry, Normal Color - Additional Findings Additional findings: +1 inch laceration to back of skull, healing well Assessment and Plan (1) Fall Status: Acute (2) Subdural hemorrhage Status: Acute - Assessment and Plan (Free Text) Assessment: 1) Fall Assessment & Plan: PT/OT eval Neurochecks Q4H Neurosurgery (Dr. Cox) on case - help appreciated * s/p fall- initial CT paracalcifine subdural hemorrhage; repeat is largely unchanged * Subdural on CT may just be subdural calcification * No surgical intervention at this time Neurology (Dr. Covington) on case - help appreciated * Per Dr. Covington, imaging findings more likely represent calficication than SDH * Pt received 1 dose valproate 500mg inj * Pt rec'd 1 dose decadron 10mg * Toradol 15mg IVP once for headache * Pt to avoid antiplatelt agents for one week * Resume home medications * Follow-up with patient's neurologist Dr Bentley within 1 week to address worsening parkinson's Imaging: CT Head (12/10/17): acute right parafalacine subdural hemorrhage. Small right parietal scalp laceration with associated subcutaneous gas. No calvarial fracture. CT Head (12/10/17): Stable head ct including minimal anterior right parafalcine subdural hematoma. No additional acute intracranial findings in the interval. Stable age related neuro degenerative findings are appreciate. Cervical spine (12/11/17): no gross fracture on the cervical spine study C1-C6 Lumbar spine (12/10/17): no fracture. or gross subluxation. Thoracic spine (12/11/17): generalized osteopenia, mild scoliosis and kyphosis. probable degenerative type wedging of the mid thoracic mid and upper thoracic spine segment. No definitive gross the thoracic fracture appreciated. Scapula xray (12/10/17): no fracture or dislocation. Arhrosis. Status: Acute 2) Subdural Hemorrhage Assessment & Plan: Neurosurgery (Dr. Cox) on case - help appreciated * s/p fall- initial CT paracalcifine subdural hemorrhage; repeat is largely unchanged * Subdural on CT may just be subdural calcification * No surgical intervention at this time Neurology (Dr. Covington) on case - help appreciated * Per Dr. Covington, imaging findings more likely represent calficication than SDH * Pt received 1 dose valproate 500mg inj * Pt rec'd 1 dose decadron 10mg * Toradol 15mg IVP once for headache * Pt to avoid antiplatelt agents for one week * Resume home medications * Follow-up with patient's neurologist Dr Bentley within 1 week to address worsening parkinson's Per Dr. Carvalho, patient is stable for discharge to [facility]. Case management has a bed for patient, just pending insurance approval. Imaging: CT Head (12/10/17): acute right parafalacine subdural hemorrhage. Small right parietal scalp laceration with associated subcutaneous gas. No calvarial fracture. CT Head (12/10/17): Stable head ct including minimal anterior right parafalcine subdural hematoma. No additional acute intracranial findings in the interval. Stable age related neuro degenerative findings are appreciate. Cervical spine (12/11/17): no gross fracture on the cervical spine study C1-C6 Lumbar spine (12/10/17): no fracture. or gross subluxation. Thoracic spine (12/11/17): generalized osteopenia, mild scoliosis and kyphosis. probable degenerative type wedging of the mid thoracic mid and upper thoracic spine segment. No definitive gross the thoracic fracture appreciated. Scapula xray (12/10/17): no fracture or dislocation. Arhrosis Status: Acute (3) Parkinson disease Assessment & Plan: Neurosurgery (Dr. Cox) on case - help appreciated * s/p fall- initial CT paracalcifine subdural hemorrhage; repeat is largely unchanged * Subdural on CT may just be subdural calcification * No surgical intervention at this time Neurology (Dr. Covington) on case - help appreciated * Per Dr. Covington, imaging findings more likely represent calficication than SDH * Pt received 1 dose valproate 500mg inj * Pt rec'd 1 dose decadron 10mg * Toradol 15mg IVP once for headache * Pt to avoid antiplatelt agents for one week * Resume home medications * Follow-up with patient's neurologist Dr Bentley within 1 week to address worsening parkinson's Imaging: CT Head (12/10/17): acute right parafalacine subdural hemorrhage. Small right parietal scalp laceration with associated subcutaneous gas. No calvarial fracture. CT Head (12/10/17): Stable head ct including minimal anterior right parafalcine subdural hematoma. No additional acute intracranial findings in the interval. Stable age related neuro degenerative findings are appreciate. Medications: * Sinemet 10/100 1 tab PO BID * Primidone 50mg PO HS <Blanca Carvalho V - Last Filed: 12/12/17 22:32> Objective - Vital Signs/Intake and Output Vital Signs (last 24 hours): Temp Pulse Resp BP Pulse Ox 98.2 F 62 18 103/42 L 96 12/12/17 20:00 12/12/17 20:00 12/12/17 20:00 12/12/17 20:00 12/12/17 20:00 Intake and Output: 12/12/17 12/13/17 18:59 06:59 Intake Total 850 Output Total 825 600 Balance 25 -600 - Medications Medications: Current Medications Acetaminophen (Tylenol 325mg Tab) 650 mg PO Q6 PRN PRN Reason: Pain, moderate (4-7) Last Admin: 12/10/17 21:00 Dose: 650 mg Carbidopa/Levodopa (Sinemet 10/100) 1 tab PO BID [facility] Last Admin: 12/12/17 17:40 Dose: 1 tab Gabapentin (Neurontin) 300 mg PO DAILY [facility] Last Admin: 12/12/17 09:25 Dose: 300 mg Pantoprazole Sodium (Protonix Ec Tab) 40 mg PO DAILY [facility] Last Admin: 12/12/17 09:25 Dose: 40 mg Primidone (Mysoline) 50 mg PO HS [facility] Last Admin: 12/12/17 22:09 Dose: 50 mg Rosuvastatin Calcium (Crestor) 5 mg PO HS [facility] Last Admin: 12/12/17 22:03 Dose: 5 mg Sucralfate (Carafate Tab) 1 gm PO BID [facility] Last Admin: 12/12/17 17:39 Dose: 1 gm - Labs Labs: 12/12/17 06:02 12/12/17 06:01 PT 11.3 SECONDS (9.7-12.2) 12/09/17 20:53 INR 1.0 12/09/17 20:53 APTT 29 SECONDS (21-34) 12/09/17 20:53 Assessment and Plan (1) Fall Status: Acute (2) Subdural hemorrhage Status: Acute (3) Parkinson disease Status: Chronic (4) Peripheral neuropathy Status: Chronic (5) Arthritis Status: Chronic (6) Prophylactic measure Status: Acute Attending/Attestation - Attestation I have personally seen and examined this patient.: Yes I have fully participated in the care of the patient.: Yes I have reviewed all pertinent clinical information, including history, physical exam and plan: Yes Notes (Text): Patient seen, examined and case discussed with medical service technician. Patient seen this morning. Patient noted she felt chilly (ICU was cold), but no headache, no change in vision, mild abdominal pain, no new weakness noted. She worked with physical therapy this morning. Later this afternoon, informed by senior resident, and ICU nurse, patient had noted slurring of speech?, left sided worsening weakness than previously; and weird feeling over her forehead, and blurry vision. Daughter in law present. Resident Shaylee spoke with neurology; we have gotten CT head w/o contrast which noted improvement of subdural; patient ordered for brain MRI stat, has completed this by evening shift; awaiting official report. I have endorsed to night time resident to f/u Brain MRI. When I re-assessed patient with 4 of her family members, she is smiling, laughing, talking, notes her dentures feel "shifted" affects her ability to smile, and strength in left upper extremity has improved since this afternoon. Discussed with patient's daughter as well, patient has two prior history of "mini-strokes" about 4 years ago. During this time, patient did no go to the hospital during the first onset of stroke. It was noted following the ministrokes, she had left sided weakness; this also the same side affected by patient's parkinson's. Also to note, patient has had b/l cataract surgery, with lens, and laser surgery , when I ask her about her vision since her surgery, she reports it has not been great; and i ask her how her vision is now; no change per patient. please note no babinski b/l, tender to palpation lower extremity noted weakness over left lower extremities and upper but has improved which I reassessed at 7PM. note discussed with social work, patient does have authorization for [facility] however discharge held given change in neuro status during the day; pending Brain mri/ neurology to determine if patient is stable to go to rehab. If so, medicine team will need to speak w case and social to arrange for transportation. Assessment/Plan (1) Fall Assessment & Plan: PT/OT eval Neurochecks Q4H Neurosurgery (Dr. Cox) on case-->help appreciated * s/p fall; original ct was read as parafalcine sdh; repeat it is about same * it is possible this really is calcified falx * regardless no surgical tx indicated from my point of view can be d/c Neurology (Dr. Covington) on case-->help appreciated * Initial CT head and repeat CT head reviewed by Dr Covington, we doubt hematoma especially in context of her clinical symptoms - imaging more indicative of a heavily calcified falx. * Patient received 1 dose valproate 500mg inj * Will order for 1 dose decadron 10mg * Toradol 15mg IVP once to treat headache * Avoid antiplatelet agents for 1 week although doubt hematoma * Ok to resume home medications * Follow-up with patient's neurologist Dr Bentley within 1 week to address worsening parkinson's Imaging: CT Head (12/10/17): acute right parafalacine subdural hemorrhage. Small right parietal scalp laceration with associated subcutaneous gas. No calvarial fracture. CT Head (12/10/17): Stable head ct including minimal anterior right parafalcine subdural hematoma. No additional acute intracranial findings in the interval. Stable age related neuro degenerative findings are appreciate. Cervical spine (12/11/17): no gross fracture on the cervical spine study C1-C6 Lumbar spine (12/10/17): no fracture. or gross subluxation. Thoracic spine (12/11/17): generalized osteopenia, mild scoliosis and kyphosis. probable degenerative type wedging of the mid thoracic mid and upper thoracic spine segment. No definitive gross the thoracic fracture appreciated. Scapula xray (12/10/17): no fracture or dislocation. Arhrosis. Status: Acute (2) Subdural hemorrhage Assessment & Plan: Neurosurgery (Dr. Cox) on case-->help appreciated * s/p fall; original ct was read as parafalcine sdh; repeat it is about same * it is possible this really is calcified falx * regardless no surgical tx indicated from my point of view can be d/c Neurology (Dr. Covington) on case-->help appreciated * Initial CT head and repeat CT head reviewed by Dr Covington, we doubt hematoma especially in context of her clinical symptoms - imaging more indicative of a heavily calcified falx. * Patient received 1 dose valproate 500mg inj * Will order for 1 dose decadron 10mg * Toradol 15mg IVP once to treat headache * Avoid antiplatelet agents for 1 week although doubt hematoma * Ok to resume home medications * Follow-up with patient's neurologist Dr Bentley within 1 week to address worsening parkinson's Imaging: CT Head (12/10/17): acute right parafalacine subdural hemorrhage. Small right parietal scalp laceration with associated subcutaneous gas. No calvarial fracture. CT Head (12/10/17): Stable head ct including minimal anterior right parafalcine subdural hematoma. No additional acute intracranial findings in the interval. Stable age related neuro degenerative findings are appreciate. Cervical spine (12/11/17): no gross fracture on the cervical spine study C1-C6 Lumbar spine (12/10/17): no fracture. or gross subluxation. Thoracic spine (12/11/17): generalized osteopenia, mild scoliosis and kyphosis. probable degenerative type wedging of the mid thoracic mid and upper thoracic spine segment. No definitive gross the thoracic fracture appreciated. Scapula xray (12/10/17): no fracture or dislocation. Arhrosis Status: Acute (3) Parkinson disease Assessment & Plan: Neurosurgery (Dr. Cox) on case-->help appreciated * s/p fall; original ct was read as parafalcine sdh; repeat it is about same * it is possible this really is calcified falx * regardless no surgical tx indicated from my point of view can be d/c Neurology (Dr. Covington) on case-->help appreciated * Initial CT head and repeat CT head reviewed by Dr Covington, we doubt hematoma especially in context of her clinical symptoms - imaging more indicative of a heavily calcified falx. * Patient received 1 dose valproate 500mg inj * Will order for 1 dose decadron 10mg * Toradol 15mg IVP once to treat headache * Avoid antiplatelet agents for 1 week although doubt hematoma * Ok to resume home medications * Follow-up with patient's neurologist Dr Bentley within 1 week to address worsening parkinson's Imaging: CT Head (12/10/17): acute right parafalacine subdural hemorrhage. Small right parietal scalp laceration with associated subcutaneous gas. No calvarial fracture. CT Head (12/10/17): Stable head ct including minimal anterior right parafalcine subdural hematoma. No additional acute intracranial findings in the interval. Stable age related neuro degenerative findings are appreciate. Sinemet 10/100 1 tab PO BID Primidone 50mg PO HS Status: Chronic (4) Peripheral neuropathy Assessment & Plan: Gabapentin 300mg PO TID Status: Chronic (5) Arthritis Assessment & Plan: nold NSAID/Aspirin secondary to subdural hemorrhage Status: Chronic (6) History of Prior TIA Assessment & Plan: * New CT Head and Brain MRI ordered for today * f/u neurology and neurochecks * unable to give aspirin/plavix given recent subdural * Patient has had left sided weakness in past; worsened today (7) Prophylactic measure Assessment & Plan: Chemical anticoagulation containdicated secondary to subdural hemorrhage Protonix 40mg PO daily Status: Acute
[2017-12-13 06:50] VITALS: RESP 20
[2017-12-13 07:03] LABS: ALB/GLOB RATIO 1.3 (1.0-2.1); ALBUMIN 3.8 g/dL (3.5-5.0); ALT/SGPT 13 U/L (9-52); AST/SGOT 27 U/L (14-36); BLOOD UREA NITROGEN 24 mg/dL (7-17); CALCIUM 9.2 mg/dl (8.6-10.4); GFR NON-AFRICAN AMERICAN > 60
[2017-12-13 07:45] VITALS: O2SAT 97
[2017-12-13 08:00] LABS: BASO % 0.4 % (0.0-2.0); EOS # 0.1 K/uL (0.0-0.7); EOS % 1.3 % (0.0-4.0); HEMOGLOBIN 12.7 g/dL (11.0-16.0); LYMPH # 2.2 K/uL (1.0-4.3); LYMPH % 23.3 % (20.0-40.0); MEAN CELL VOLUME 94.8 fL (81.0-99.0); MEAN CORPUSCULAR HEMOGLOBIN 32.7 pg (27.0-31.0); MEAN CORPUSCULAR HGB CONC 34.5 g/dL (33.0-37.0); MEAN PLATELET VOLUME 8.7 fL (7.2-11.7); MONO # 0.9 K/uL (0.0-0.8); MONO % 9.9 % (0.0-10.0); NEUT # 6.1 K/uL (1.8-7.0); NEUT % 65.1 % (50.0-75.0); RBC 3.9 Mil/uL (3.80-5.20); WHITE BLOOD COUNT 9.4 K/uL (4.8-10.8)
[2017-12-13] MEDS: Pantoprazole 40 mg EC Tab PO SCH (10:44)
--- NOTE | 2017-12-13 14:22 | CP.PCM.DIS ---
Provider - Provider Date of Admission: 12/09/17 20:42 Attending physician: Blanca Carvalho DO Consults: Dr. Adria Cox Time Spent in preparation of Discharge (in minutes): 31 Diagnosis - Discharge Diagnosis (1) Fall Status: Acute (2) Subdural hemorrhage Status: Acute (3) Parkinson disease Status: Chronic (4) Peripheral neuropathy Status: Chronic (5) Arthritis Status: Chronic (6) Prophylactic measure Status: Acute Hospital Course - Lab Results Lab Results: Micro Results 12/10/17 06:17 Nose MRSA Culture (Admit) - Final MRSA NOT DETECTED 12/10/17 18:00 Urine,Clean Catch Urine Culture - Final No Growth (<1,000 CFU/ML) Most Recent Lab Values WBC 9.4 K/uL (4.8-10.8) 12/13/17 07:33 RBC 3.90 Mil/uL (3.80-5.20) 12/13/17 07:33 Hgb 12.7 g/dL (11.0-16.0) 12/13/17 07:33 Hct 37.0 % (34.0-47.0) 12/13/17 07:33 MCV 94.8 fL (81.0-99.0) 12/13/17 07:33 MCH 32.7 pg (27.0-31.0) H 12/13/17 07:33 MCHC 34.5 g/dL (33.0-37.0) 12/13/17 07:33 RDW 13.0 % (11.5-14.5) 12/13/17 07:33 Plt Count 242 K/uL (130-400) 12/13/17 07:33 MPV 8.7 fL (7.2-11.7) 12/13/17 07:33 Neut % (Auto) 65.1 % (50.0-75.0) 12/13/17 07:33 Lymph % (Auto) 23.3 % (20.0-40.0) 12/13/17 07:33 [place] % (Auto) 9.9 % (0.0-10.0) 12/13/17 07:33 Eos % (Auto) 1.3 % (0.0-4.0) 12/13/17 07:33 Baso % (Auto) 0.4 % (0.0-2.0) 12/13/17 07:33 Neut # (Auto) 6.1 K/uL (1.8-7.0) 12/13/17 07:33 Lymph # (Auto) 2.2 K/uL (1.0-4.3) 12/13/17 07:33 [place] # (Auto) 0.9 K/uL (0.0-0.8) H 12/13/17 07:33 Eos # (Auto) 0.1 K/uL (0.0-0.7) 12/13/17 07:33 Baso # (Auto) 0.0 K/uL (0.0-0.2) 12/13/17 07:33 PT 11.3 SECONDS (9.7-12.2) 12/09/17 20:53 INR 1.0 12/09/17 20:53 APTT 29 SECONDS (21-34) 12/09/17 20:53 Sodium 140 mmol/L (132-148) 12/13/17 06:28 Potassium 4.4 mmol/L (3.6-5.2) 12/13/17 06:28 Chloride 100 mmol/L (98-107) 12/13/17 06:28 Carbon Dioxide 31 mmol/L (22-30) H 12/13/17 06:28 Anion Gap 13 (10-20) 12/13/17 06:28 BUN 24 mg/dL (7-17) H 12/13/17 06:28 Creatinine 0.8 mg/dL (0.7-1.2) 12/13/17 06:28 Est GFR ( Amer) > 60 12/13/17 06:28 Est GFR (Non-Af Amer) > 60 12/13/17 06:28 POC Glucose (mg/dL) 96 mg/dL (65-110) 12/13/17 11:14 Random Glucose 87 mg/dL (65-105) 12/13/17 06:28 Calcium 9.2 mg/dl (8.6-10.4) 12/13/17 06:28 Phosphorus 3.7 mg/dL (2.5-4.5) 12/13/17 06:28 Magnesium 2.0 mg/dL (1.6-2.3) 12/13/17 06:28 Total Bilirubin 0.5 mg/dL (0.2-1.3) 12/13/17 06:28 AST 27 U/L (14-36) 12/13/17 06:28 ALT 13 U/L (9-52) 12/13/17 06:28 Alkaline Phosphatase 46 U/L (38-126) 12/13/17 06:28 Total Protein 6.8 g/dL (6.3-8.3) 12/13/17 06:28 Albumin 3.8 g/dL (3.5-5.0) 12/13/17 06:28 Globulin 3.0 gm/dL (2.2-3.9) 12/13/17 06:28 Albumin/Globulin Ratio 1.3 (1.0-2.1) 12/13/17 06:28 Urine Color Yellow (YELLOW) 12/10/17 18:17 Urine Clarity Clear (Clear) 12/10/17 18:17 Urine pH 6.0 (5.0-8.0) 12/10/17 18:17 Ur Specific [place] 1.006 (1.003-1.030) 12/10/17 18:17 Urine Protein Negative mg/dL (NEGATIVE) 12/10/17 18:17 Urine Glucose (UA) Normal mg/dL (Normal) 12/10/17 18:17 Urine Ketones Trace mg/dL (NEGATIVE) 12/10/17 18:17 Urine Blood Negative (NEGATIVE) 12/10/17 18:17 Urine Nitrate Negative (NEGATIVE) 12/10/17 18:17 Urine Bilirubin Negative (NEGATIVE) 12/10/17 18:17 Urine Urobilinogen Normal mg/dL (0.2-1.0) 12/10/17 18:17 Ur Leukocyte Esterase Neg Wilfred/uL (Negative) 12/10/17 18:17 Urine WBC (Auto) 1 /hpf (0-5) 12/10/17 18:17 Urine RBC (Auto) 1 /hpf (0-3) 12/10/17 18:17 Ur Squamous Epith Cells 1 /hpf (0-5) 12/10/17 18:17 Urine Bacteria Rare (<OCC) 12/10/17 18:17 Blood Type O POSITIVE 12/09/17 20:53 Antibody Screen Negative 12/09/17 20:53 Discharge Exam - Head Exam Head Exam: ATRAUMATIC, NORMAL INSPECTION, NORMOCEPHALIC Additional comments: tender to palpation - Eye Exam Eye Exam: EOMI, PERRL - ENT Exam ENT Exam: Mucous Membranes Dry - Respiratory Exam Respiratory Exam: Clear to PA & Lateral, NORMAL BREATHING PATTERN. absent: Rales, Rhonchi - Cardiovascular Exam Cardiovascular Exam: REGULAR RHYTHM, +S1, +S2 - GI/Abdominal Exam GI & Abdominal Exam: Normal Bowel Sounds, Soft. absent: Distended, Firm, Guarding, Rebound, Rigid, Tenderness - Extremities Exam Extremities exam: pedal edema (trace nonpitting), tenderness, pedal pulses present - Neurological Exam Neurological exam: Alert, Oriented x3 - Skin Skin Exam: Dry, Intact, Normal Color, Warm Discharge Plan - Follow Up Plan Condition: STABLE Disposition: HOME/ ROUTINE Instructions: Preventing Falls in the Older Adult Additional Instructions: Patient is stable for discharge to subacute rehab per Dr. Carvalho as soon as there is a bed available. If symptoms reoccur or worsen please return to the ER. Please refrain from taking aspirin, NSAIDs (Naproxen, Motrin, Advil) or any blood thinners until follow up with a primary care physician. Referrals: Camron Bentley MD [Staff Provider] - Clinical Quality Measures - CQM - Stroke Antithrombotic Prescribed: Medical Contraindication Present Contranindication/Reason for not providing: Risk for Bleeding, Risk for Falling Anticoagulation Prescribed for Atrial Flutter, Atrial Fibrillation and History of:: Not Applicable Statin prescribed: Yes Attending/Attestation - Attestation I have personally seen and examined this patient.: Yes I have fully participated in the care of the patient.: Yes I have reviewed all pertinent clinical information, including history, physical exam and plan: Yes Notes (Text): Patient seen, examined, and case discussed with day-time resident. Patient seen this morning with son at bedside. patient's left sided weakness has improved compared to yesterday afternoon. Case discussed with neurology, no further recommendations; recommends for patient to follow-up with her neurologist upon discharge I spoke with Dr. Samuels, in regards to Brain MRI given questionable trace subdural, reviewed brain MRi need no intervention needed. I spoke with case management and social work, patient is medically stable for discharge for [facility] acute rehab. Please note: patient is private patient of Dr. Christie (away until 12/16/17). No nsaid/aspirin/blood thinner. Assessment/plan (1)s/p Fall Assessment & Plan: PT/OT eval Neurochecks Q4H Neurosurgery (Dr. Cox) on case-->help appreciated * s/p fall; original ct was read as parafalcine sdh; repeat it is about same * it is possible this really is calcified falx * regardless no surgical tx indicated from my point of view can be d/c Neurology (Dr. Covington) on case-->help appreciated * Initial CT head and repeat CT head reviewed by Dr Covington, we doubt hematoma especially in context of her clinical symptoms - imaging more indicative of a heavily calcified falx. * Patient received 1 dose valproate 500mg inj * Will order for 1 dose decadron 10mg * Toradol 15mg IVP once to treat headache * Avoid antiplatelet agents for 1 week although doubt hematoma * Ok to resume home medications * Follow-up with patient's neurologist Dr Bentley within 1 week to address worsening parkinson's Imaging: CT Head (12/10/17): acute right parafalacine subdural hemorrhage. Small right parietal scalp laceration with associated subcutaneous gas. No calvarial fracture. CT Head (12/10/17): Stable head ct including minimal anterior right parafalcine subdural hematoma. No additional acute intracranial findings in the interval. Stable age related neuro degenerative findings are appreciate. Cervical spine (12/11/17): no gross fracture on the cervical spine study C1-C6 Lumbar spine (12/10/17): no fracture. or gross subluxation. Thoracic spine (12/11/17): generalized osteopenia, mild scoliosis and kyphosis. probable degenerative type wedging of the mid thoracic mid and upper thoracic spine segment. No definitive gross the thoracic fracture appreciated. Scapula xray (12/10/17): no fracture or dislocation. Arhrosis. Status: Acute (2) Subdural hemorrhage Assessment & Plan: Neurosurgery (Dr. Cox) on case-->help appreciated * s/p fall; original ct was read as parafalcine sdh; repeat it is about same * it is possible this really is calcified falx * regardless no surgical tx indicated from my point of view can be d/c Neurology (Dr. Covington) on case-->help appreciated * Initial CT head and repeat CT head reviewed by Dr Covington, we doubt hematoma especially in context of her clinical symptoms - imaging more indicative of a heavily calcified falx. * Patient received 1 dose valproate 500mg inj * Will order for 1 dose decadron 10mg * Toradol 15mg IVP once to treat headache * Avoid antiplatelet agents for 1 week although doubt hematoma * Ok to resume home medications * Follow-up with patient's neurologist Dr Bentley within 1 week to address worsening parkinson's Imaging: CT Head (12/10/17): acute right parafalacine subdural hemorrhage. Small right parietal scalp laceration with associated subcutaneous gas. No calvarial fracture. CT Head (12/10/17): Stable head ct including minimal anterior right parafalcine subdural hematoma. No additional acute intracranial findings in the interval. Stable age related neuro degenerative findings are appreciate. Cervical spine (12/11/17): no gross fracture on the cervical spine study C1-C6 Lumbar spine (12/10/17): no fracture. or gross subluxation. Thoracic spine (12/11/17): generalized osteopenia, mild scoliosis and kyphosis. probable degenerative type wedging of the mid thoracic mid and upper thoracic spine segment. No definitive gross the thoracic fracture appreciated. Scapula xray (12/10/17): no fracture or dislocation. Arhrosis CT Head (12/12/17): interval decrease in amount of right parafalcine subdural hemorrhage. No new hemorrhage or significant interval change * Brain MRI (12/13/17): evaluation moderately limited by patient motion. no evidence of acute inarcttion. minimal anterior flax subdural hemorrhage. questionable trace frontal. * Discussed with neurology, and neurosurgery, reviewed scans, patient is stable. no further intervention Status: Acute (3) Parkinson disease Assessment & Plan: Neurosurgery (Dr. Cox) on case-->help appreciated * s/p fall; original ct was read as parafalcine sdh; repeat it is about same * it is possible this really is calcified falx * regardless no surgical tx indicated from my point of view can be d/c Neurology (Dr. Covington) on case-->help appreciated * Initial CT head and repeat CT head reviewed by Dr Covington, we doubt hematoma especially in context of her clinical symptoms - imaging more indicative of a heavily calcified falx. * Patient received 1 dose valproate 500mg inj * Will order for 1 dose decadron 10mg * Toradol 15mg IVP once to treat headache * Avoid antiplatelet agents for 1 week although doubt hematoma * Ok to resume home medications * Follow-up with patient's neurologist Dr Bentley within 1 week to address worsening parkinson's Imaging: CT Head (12/10/17): acute right parafalacine subdural hemorrhage. Small right parietal scalp laceration with associated subcutaneous gas. No calvarial fracture. CT Head (12/10/17): Stable head ct including minimal anterior right parafalcine subdural hematoma. No additional acute intracranial findings in the interval. Stable age related neuro degenerative findings are appreciate. CT Head (12/12/17): interval decrease in amount of right parafalcine subdural hemorrhage. No new hemorrhage or significant interval change * Brain MRI (12/13/17): evaluation moderately limited by patient motion. no evidence of acute inarcttion. minimal anterior flax subdural hemorrhage. questionable trace frontal. * Discussed with neurology, and neurosurgery, reviewed scans, patient is stable. no further intervention Sinemet 10/100 1 tab PO BID Primidone 50mg PO HS Status: Chronic (4) Peripheral neuropathy Assessment & Plan: Gabapentin 300mg PO TID Status: Chronic (5) Arthritis Assessment & Plan: nold NSAID/Aspirin secondary to subdural hemorrhage Status: Chronic (6) History of Prior TIA Assessment & Plan: * CT Head (12/12/17): interval decrease in amount of right parafalcine subdural hemorrhage. No new hemorrhage or significant interval change * Brain MRI (12/13/17): evaluation moderately limited by patient motion. no evidence of acute inarcttion. minimal anterior flax subdural hemorrhage. questionable trace frontal. * Discussed with neurology, and neurosurgery, reviewed scans, patient is stable. no further intervention * unable to give aspirin/plavix given recent subdural * Patient has had left sided weakness--Improved (7) Prophylactic measure Assessment & Plan: * Chemical anticoagulation containdicated secondary to subdural hemorrhage * Protonix 40mg PO daily Status: Acute
[2017-12-13 15:49] VITALS: BP 113/62; PULSE 80; TEMP 98.2
--- NOTE | 2017-12-13 17:06 | MRI ---
Date of service: 12/12/2017 PROCEDURE: MRI BRAIN WITHOUT CONTRAST HISTORY: acute on chronic left sided weakness COMPARISON: Comparison made with prior CT scan brain 12/12/2017 TECHNIQUE: Multiplanar, multisequence MR images of the brain were obtained without intravenous contrast enhancement. FINDINGS: HEMORRHAGE: No acute parenchymal, subarachnoid or extra-axial hemorrhage. No evidence of hemosiderin deposition seen on gradient echo weighted sequence. DWI: No evidence of an acute or early subacute infarction seen on diffusion imaging. BRAIN PARENCHYMA: Mild chronic periventricular white matter ischemic changes with multiple tiny on chronic appearing lacunar type infarcts scattered about the deep and subcortical white matter both cerebral hemispheres. There are also scattered lacunar is seen both basal nuclei extending superiorly into the mitchell radiata bilaterally. No obvious parenchymal nor extra-axial mass or collection seen on this noncontrast exam. Moderate generalized volume loss. VENTRICLES: Unremarkable. No hydrocephalus. CRANIUM: Unremarkable. ORBITS: Changes of bilateral cataract surgery again noted. PARANASAL SINUSES/MASTOIDS: Mild mucosal thickening seen in the right aspect of the sphenoid sinus. VASCULAR SYSTEM: Vascular calcifications both carotid siphons. OTHER FINDINGS: None. IMPRESSION: No evidence of acute intracranial hemorrhage or infarct. Chronic white matter and basal nuclei ischemic changes. Moderate volume loss.
== END 2017-12-13 21:20 | DRG 87 ==
LOC: C.ER 19:00 → C.9E 20:42 → C.9I 22:04 → C.6T 12-13 06:48
PROVIDERS: ADMIT Hospitalist; ATTEND Hospitalist
DX: S06.5X0A Traumatic subdural hemorrhage without loss of consciousness, initial encounter (principal); W01.0XXA Fall on same level from slipping, tripping and stumbling without subsequent striking against object, initial encounter; E11.40 Type 2 diabetes mellitus with diabetic neuropathy, unspecified; E78.00 Pure hypercholesterolemia, unspecified; G20 Parkinson's disease; M81.0 Age-related osteoporosis without current pathological fracture; S01.01XA Laceration without foreign body of scalp, initial encounter; Z86.73 Personal history of transient ischemic attack (TIA), and cerebral infarction without residual deficits; Z91.81 History of falling; M40.209 Unspecified kyphosis, site unspecified; M85.80 Other specified disorders of bone density and structure, unspecified site

== ENCOUNTER 2018-03-13 19:12 | Emergency (ER) | payer MEDICAID, MEDICARE ==
[2018-03-13 19:12] VITALS: BMI 24.0
[2018-03-13 19:39] VITALS: BP 138/79; PULSE 77; RESP 18; TEMP 98.7; O2SAT 98
[2018-03-13] MEDS ORDERED: Bacitracin 500 Units/gm Oint Foilpak UD ONE (20:12)
--- NOTE | 2018-03-13 20:16 | C.PDOC ---
History Of Present Illness 72yo female, with history of Parkinson's Disease, brought to ER for evaluation after a fall 1 hour prior to arrival. Patient states she usually walks with a walker, but was not using it at time of incident. She was in the bathroom, lost her balance and fell, sustaining a head injury, right elbow injury and bilateral knee injuries. Patient denies any loss of consciousness, neck pain, nausea or vomiting. Of note, patient has weakness to her left arm, which she attributes to her Parkinson's Disease. Otherwise, no additional complaints. PMD: Andrew Christie - [facility] Time Seen by Provider: 03/13/18 20:10 Chief Complaint (Nursing): Trauma History Per: Patient, Family History/Exam Limitations: no limitations Onset/Duration Of Symptoms: Hrs (1 hour ago) Injury Occurred (Timing): Hours Ago: (1) Location Of Injury: Right: Elbow, Knee, Left: Knee, Posterior: Head Additional History Per: Patient Past Medical History Reviewed: Historical Data, Nursing Documentation, Vital Signs Vital Signs: Last Vital Signs Temp 98.7 F 03/13/18 19:21 Pulse 77 03/13/18 19:21 Resp 18 03/13/18 19:21 BP 138/79 03/13/18 19:21 Pulse Ox 98 03/13/18 19:21 - Medical History PMH: Anxiety, Arthritis, Diabetes (with neuropathy), Diverticulitis, Hypercholesterolemia, Osteoporosis, Parkinson's Disease, TIA Denies: CAD, Gastritis, Gall Bladder Disease, GERD, HIV, Pancreatitis, Chr onic Kidney Disease Surgical History: Appendectomy, Cholecystectomy - [facility] Procedures APPLICATION OF SPLINT (09/26/05) BED MOBILITY TREATMENT USING ASSIST EQUIPMENT (12/13/17) COLONOSCOPY (02/16/14) DRESSING TECHNIQUES TREATMENT USING ASSIST EQUIPMENT (12/13/17) GAIT TRAINING/AMBULAT TREATMENT USING ASSIST EQUIPMENT (12/13/17) LAPAROSCOP LYSIS-PERITONEAL ADHES (06/29/99) LAPAROSCOP REMOVE OVARIES/TUBES (06/29/99) MANUAL THERAPY TECHNIQUES TREATMENT OF MUSCULOSK LOW BACK/LE (12/13/17) TRANSFER TRAINING TREATMENT USING ASSIST EQUIPMENT (12/13/17) Family History: States: No Known Family Hx - Social History Hx Alcohol Use: No Hx Substance Use: No - Immunization History Hx Tetanus Toxoid Vaccination: No Hx Influenza Vaccination: Yes Hx Pneumococcal Vaccination: Yes Review Of Systems Except As Marked, All Systems Reviewed And Found Negative. Gastrointestinal: Negative for: Nausea, Vomiting Musculoskeletal: Positive for: Other (right elbow pain; bilateral knee pain) Neurological: Positive for: Other ((+) head injury; (-) loss of consciousness) Physical Exam - Physical Exam Appears: Non-toxic, No Acute Distress Skin: Warm, Dry, Ecchymosis (multiple healing ecchymosis noted to extremities) Head: Normacephalic, Swelling (small scalp hematoma noted to right posterior scalp), No Abrasion, No Laceration Eye(s): bilateral: Normal Inspection, PERRL, EOMI Neck: Normal ROM, No Midline Cervical Tenderness, No Paracervical Tenderness, No Step Off Deformity, Supple Chest: Symmetrical Cardiovascular: Rhythm Regular Respiratory: Normal Breath Sounds Gastrointestinal/Abdominal: Normal Exam, Soft Extremity: Normal ROM (AROM of right elbow), Tenderness (pain to left hip with ROM of left leg), No Deformity, Other (painful ROM of bilateral knees) Extremity: Left: Other (shortened externally rotated left lower extremity) Neurological/Psych: Oriented x3, Normal Speech, Normal Cognition, Normal Motor, Normal Sensation ED Course And Treatment - Laboratory Results Result Diagrams: 03/13/18 20:38 03/13/18 20:38 O2 Sat by Pulse Oximetry: 98 (RA) Pulse Ox Interpretation: Normal - Radiology CXR: Interpreted by Nd CXR Interpretation: Yes: No Acute Disease - Other Rad l hip X-Ray: Interpreted by Nd (neg) R ELBOW X-Ray: Interpreted by Nd (NEG) BL KNEE X-Ray: Interpreted by Nd (NEG) - CT Scan/US CT head Other Rad Studies (CT/US): Read By Radiologist, Radiology Report Reviewed CT/US Interpretation: EXAM: CT Head without Intravenous Contrast. CLINICAL HISTORY: Head trauma, fall. TECHNIQUE: Axial computed tomography images of t he head/brain without intravenous contrast. COMPARISON: None provided. FINDINGS: BRAIN. Chronic periventricular and subcortical microvascular disease is seen. VENTRICLES: There is generalized parenchymal atrophy noted as demonstrated by symmetrical dilatation of ventricles and sulci. ORBITS: The orbits are unremarkable. SINUSES AND MASTOIDS: The paranasal sinuses and mastoid air cells are clear. BONES: No fracture. SOFT TISSUES: Unremarkable. MISCELLANEOUS: No acute intracranial pathology. IMPRESSION: 1. There is generalized parenchymal atrophy noted as demonstrated by symmetrical dilatation of ventricles and sulci. 2. Chronic periventricular and subcortical microvascular disease is seen. 3. No acute intracranial pathology. . Electronically signed on Mar 13, 2018 9:11:53 PM EST by: Jacye Poole M.D., LOR[place] Certified By ABR & CBCCT. Fellowship Trained MRI and CT Specialist CT C spine Other Rad Studies (CT/US): Read By Radiologist, Radiology Report Reviewed CT/US Interpretation: CLINICAL HISTORY: Neck pain. Fall. TECHNIQUE: Multiple axial images were obtained through the cervical spine. Images were also r econstructed in coronal and sagittal planes. The study was performed without IV contrast. COMMENTS: There is no fracture or spondylolisthesis visualized. The paraspinal soft tissues are unremarkable. There are no lytic or blastic lesions. Straightening of cervical lordosis is seen, suggesting muscular spasm. There is evidence of mild multilevel disk disease, demonstrated by osteophytosis and en dplate sclerosis. No significant disk herniation is noted at any level. Canal and foramina remain patent. IMPRESSION: 1. No fracture or spondylolisthesis. 2. Straightening of cervical lordosis is seen, suggesting muscular spasm. 3. Mild multilevel spondylosis. Thank you for your kind referral of this patient. We appreciate the opportunity to participate in this patient's care. . Electronically signed on Mar 13, 2018 9:17:17 PM EST by: Jayce Poole M.D., [place] Certified By ABR & CBCCT. Fellowship Trained MRI and CT Specialist. Progress - Re-Evaluation Re-evaluation Note: 03/13/18 22:20 FEELS BETTER VSS. XRAYS, CT WNL - Data Reviewed Data Reviewed: Lab, Diagnostic imaging, EKG Disposition Counseled Patient/Family Regarding: Studies Performed, Diagnosis, Need For Followup - Disposition Referrals: YOUR,PMD [Other] Disposition: HOME/ ROUTINE Disposition Time: 22:20 Condition: IMPROVED Instructions: Minor Head Injury (DC), Contusion (DC) Forms: [facility] ([place]) - Clinical Impression Clinical Impression: Minor head injury, Multiple contusions - Scribe Statement The provider has reviewed the documentation as recorded by the Damion Madrid Provider Attestation: All medical record entries made by the Scribe were at my direction and personally dictated by me. I have reviewed the chart and agree that the record accurately reflects my personal performance of the history, physical exam, medical decision making, and the department course for this patient. I have also personally directed, reviewed, and agree with the discharge instructions and disposition.
[2018-03-13 20:43] LABS: BASO # 0.1 K/uL (0.0-0.2); BASO % 0.7 % (0.0-2.0); EOS # 0.1 K/uL (0.0-0.7); EOS % 1.4 % (0.0-4.0); HEMOGLOBIN 12.2 g/dL (11.0-16.0); LYMPH % 23.9 % (20.0-40.0); MEAN CELL VOLUME 95.4 fL (81.0-99.0); MEAN CORPUSCULAR HEMOGLOBIN 31.5 pg (27.0-31.0); MEAN CORPUSCULAR HGB CONC 33.1 g/dL (33.0-37.0); MONO % 11.9 % (0.0-10.0); NEUT # 5.3 K/uL (1.8-7.0); NEUT % 62.1 % (50.0-75.0); RBC 3.85 Mil/uL (3.80-5.20); RED CELL DISTRIBUTION WIDTH 13.1 % (11.5-14.5); WHITE BLOOD COUNT 8.5 K/uL (4.8-10.8)
[2018-03-13 20:54] LABS: BLOOD UREA NITROGEN 18 mg/dL (7-17); CALCIUM 9.3 mg/dl (8.6-10.4); GFR NON-AFRICAN AMERICAN > 60
[2018-03-13 21:00] LABS: ALB/GLOB RATIO 1.1 (1.0-2.1); ALBUMIN 4.2 g/dL (3.5-5.0); ALT/SGPT 7 U/L (9-52); AST/SGOT 43 U/L (14-36)
--- NOTE | 2018-03-14 07:17 | CT ---
Date of service: 03/13/2018 PROCEDURE: CT HEAD WITHOUT CONTRAST. HISTORY: TRAUMA COMPARISON: 12/12/2017 TECHNIQUE: Axial computed tomography images were obtained through the head/brain without intravenous contrast. Radiation dose: Total exam DLP = 855.35 mGy-cm. This CT exam was performed using one or more of the following dose reduction techniques: Automated exposure control, adjustment of the mA and/or kV according to patient size, and/or use of iterative reconstruction technique. FINDINGS: HEMORRHAGE: No intracranial hemorrhage. BRAIN: No mass effect or edema. Scattered focal lucencies in the subcortical and periventricular white matter suggestive for chronic microvascular ischemic change. Age related atrophy. Bilateral basal ganglia calcifications. VENTRICLES: Prominent. CALVARIUM: Unremarkable. PARANASAL SINUSES: Unremarkable as visualized. No significant inflammatory changes. MASTOID AIR CELLS: Unremarkable as visualized. No inflammatory changes. OTHER FINDINGS: Intracranial arterial calcifications IMPRESSION: Age related atrophy. Chronic microvascular ischemic changes. If symptoms persists, consider correlation with MRI. A preliminary report was generated at 9:11 p.m. on 03/13/[address] Jayce Poole from [facility].
--- NOTE | 2018-03-14 08:04 | RAD ---
Chest x-ray single frontal view HISTORY: Trauma. COMPARISON: 08/11/2015 FINDINGS: Biapical pleural thickening with upper lobe granulomatous changes. Small nodular density at the left lung base laterally may represent confluence of shadows with ribs and vessels. Mild venous congestion. Heart size within normal limits. Degenerative changes in the spine. IMPRESSION: Biapical pleural thickening with upper lobe granulomatous changes. Small nodular density at the left lung base laterally may represent confluence of shadows with ribs and vessels. Mild venous congestion.
--- NOTE | 2018-03-14 09:16 | CT ---
CT cervical spine HISTORY: Trauma. COMPARISON: None available. TECHNIQUE: Multiple contiguous axial images were performed through the cervical spine without the use of intravenous contrast. Subsequently, sagittal and coronal reformatted images were obtained. FINDINGS: Exaggerated cervical lordosis. Prominent narrowing at the atlantodental interval with sclerosis and bony hypertrophy. Minimal retrolisthesis of C3 on C4. Mild loss of height of the T3 vertebral body. Multilevel anterior osteophytosis most prominent at the C4-5 and C5-6 levels. Multilevel posterior disc osteophyte complexes at the C3-4, C4-5, and C5-6 levels. No evidence of acute displaced fracture or dislocation. Mild mucosal thickening of the sphenoid sinus. Mild mucosal opacification of the bilateral mastoid air cells. Atherosclerotic calcification at the aortic knob. Impression: Degenerative changes. If pain persists, consider correlation with MRI. A preliminary report was generated at 9:17 p.m. on 03/13/[address] Jayce Poole from [facility].
--- NOTE | 2018-03-14 10:54 | RAD ---
Bilateral knees four views HISTORY: Trauma. COMPARISON: None available. Findings: Right knee: Moderate narrowing of the medial compartment of the femorotibial joint space. Mild narrowing of the patellofemoral compartment. No significant suprapatellar joint effusion. Left knee: Enthesopathic change at the superior bony patella with small radiopaque density noted at the anterior superior bony patella. No significant suprapatellar joint effusion. Mild narrowing of the patellofemoral compartment. Moderate narrowing of the medial compartment of the femorotibial joint space. Impression: Degenerative changes. If pain persists, consider MRI.
--- NOTE | 2018-03-14 11:14 | RAD ---
Right elbow three views HISTORY: Trauma. COMPARISON: None available. Findings: Limited study given suboptimal patient positioning and technique. Repeat study is recommended if clinically indicated. On the frontal view, there is a somewhat vertically oriented lucency noted at the medial aspect of the radial head which may represent a prominent vascular groove; however, subtle osseous injury at this level cannot entirely be excluded. Narrowing of the radiocapitellar joint space. No gross elbow joint effusion however the positioning of the elbow on the lateral view is suboptimal. Some nonspecific cortical thickening is noted along the lateral cortex of the midshaft of the right humerus. Impression: Limited study given suboptimal patient positioning and technique. Repeat study is recommended if clinically indicated. On the frontal view, there is a somewhat vertically oriented lucency noted at the medial aspect of the radial head which may represent a prominent vascular groove; however, subtle osseous injury at this level cannot entirely be excluded. Correlation with MRI may be helpful if clinically indicated.
--- NOTE | 2018-03-14 11:26 | RAD ---
Pelvis and left hip two views HISTORY: Trauma. COMPARISON: None available. Findings: Study limited secondary to suboptimal patient positioning and technique. Left hip: Moderate narrowing of the left hip joint space with subchondral sclerosis. No evidence of acute displaced fracture or dislocation. Moderate narrowing of the right hip joint space with subchondral sclerosis. Degenerative changes in the lower lumbar spine. Moderate fecal retention in the colon. Impression: Study limited secondary to suboptimal patient positioning and technique. Degenerative changes. If pain persists, consider MRI.
== END 2018-03-13 22:40 | disposition home or self-care (01) ==
LOC: C.ER 19:12
DX: S00.03XA Contusion of scalp, initial encounter (principal); S50.01XA Contusion of right elbow, initial encounter; S80.02XA Contusion of left knee, initial encounter; S80.01XA Contusion of right knee, initial encounter; W01.0XXA Fall on same level from slipping, tripping and stumbling without subsequent striking against object, initial encounter; Y92.002 Bathroom of unspecified non-institutional (private) residence as the place of occurrence of the external cause; E11.40 Type 2 diabetes mellitus with diabetic neuropathy, unspecified; E78.00 Pure hypercholesterolemia, unspecified; G20 Parkinson's disease; Z86.73 Personal history of transient ischemic attack (TIA), and cerebral infarction without residual deficits

== ENCOUNTER 2018-04-26 17:23 | Emergency (ER) | payer MEDICARE ==
[2018-04-26 17:23] VITALS: BMI 28.6
--- NOTE | 2018-04-26 18:14 | C.PDOC ---
History Of Present Illness 72 year old female with PMHx of Parkinson's Disease, HTN, and neuropathy presents to the ED status post fall. Reports she was laying down on the sofa and tried to get up to use the bathroom but she fell down and accidentally hit herself against chair. PS ABLE TO DRAG SELF ALONG FLOOR TO CALL. As per daughter, patient is at baseline. States she lives alone. Patient is noncompliant with walker use. Complains of left eye pain and abrasions to left leg. - HPI Time Seen by Provider: 04/26/18 18:00 History Per: Patient, Family (daughter ) History/Exam Limitations: no limitations Onset/Duration Of Symptoms: Hrs Injury Occurred (Timing): Just Before Arrival Location Of Injury: Left: Face (left eye pain ), Leg (abrasions) - Fall Fall:Prior To Injury: Other (fell ) Past Medical History Reviewed: Historical Data, Nursing Documentation, Vital Signs Vital Signs: Last Vital Signs Temp 97.9 F 04/26/18 17:47 Pulse 78 04/26/18 17:47 Resp 20 04/26/18 17:47 BP 144/69 04/26/18 17:47 Pulse Ox 99 04/26/18 17:47 - Medical History PMH: Anxiety, Arthritis, Diabetes (with neuropathy), Diverticulitis, Hypercholesterolemia, Osteoporosis, Parkinson's Disease, TIA Denies: CAD, Gastritis, Gall Bladder Disease, GERD, HIV, Pancreatitis, Chronic Kidney Disease Surgical History: Appendectomy, Cholecystectomy - [facility] Procedures APPLICATION OF SPLINT (09/26/05) BED MOBILITY TREATMENT USING ASSIST EQUIPMENT (12/13/17) COLONOSCOPY (02/16/14) DRESSING TECHNIQUES TREATMENT USING ASSIST EQUIPMENT (12/13/17) GAIT TRAINING/AMBULAT TREATMENT USING ASSIST EQUIPMENT (12/13/17) LAPAROSCOP LYSIS-PERITONEAL ADHES (06/29/99) LAPAROSCOP REMOVE OVARIES/TUBES (06/29/99) MANUAL THERAPY TECHNIQUES TREATMENT OF MUSCULOSK LOW BACK/LE (12/13/17) TRANSFER TRAINING TREATMENT USING ASSIST EQUIPMENT (12/13/17) Family History: States: No Known Family Hx - Social History Hx Alcohol Use: No Hx Substance Use: No - Immunization History Hx Tetanus Toxoid Vaccination: No Hx Influenza Vaccination: Yes Hx Pneumococcal Vaccination: Yes Review Of Systems Except As Marked, All Systems Reviewed And Found Negative. Constitutional: Negative for: Fever, Chills Eyes: Positive for: Pain (left) Skin: Positive for: Other (abrasions ) Physical Exam - Physical Exam Appears: Non-toxic, No Acute Distress Skin: Warm, Dry Head: Atraumatic, Normacephalic, No Tenderness, No Laceration Eye(s): bilateral: Normal Inspection, PERRL, EOMI Nose: Normal Oral Mucosa: Moist Neck: Supple Chest: Symmetrical Cardiovascular: Rhythm Regular Respiratory: No Rales, No Rhonchi, No Wheezing, Other (CTA B/L ) Extremity: No Normal ROM (limited ROM to right knee, worse on left knee ), Swelling (left knee ), Other (abrasion to left knee ) Neurological/Psych: Oriented x3, Normal Speech ED Course And Treatment O2 Sat by Pulse Oximetry: 99 (RA) Pulse Ox Interpretation: Normal - Radiology CXR: Interpreted by Me CXR Interpretation: Yes: No Acute Disease - Other Rad XR pelvis X-Ray: Interpreted by Me, Viewed By Me Interpretation: No fractures/dislocations XR b/l knees X-Ray: Interpreted by Me, Viewed By Me Interpretation: No fractures/dislocations - CT Scan/US CT head Other Rad Studies (CT/US): Read By Radiologist, Radiology Report Reviewed CT/US Interpretation: EXAM: CT Head without Intravenous Contrast. CLINICAL HISTORY: Trauma. TECHNIQUE: Axial computed tomography images of the head/bra in without intravenous contrast. 0.00 mGy-cm. COMPARISON: None provided. FINDINGS: BRAIN. No acute intraparenchymal hemorrhage. No mass lesion. No CT evidence for acute territorial infarct. No midline shift or extra-axial collections. VENTRICLES: No hydrocephalus. ORBITS: The orbits are unremarkable. SINUSES AND MASTOIDS: The paranasal sinuses and mastoid air cells are clear. BONES: No fracture. SOFT TISSUES: Unremarkable. IMPRESSION: No acute intracranial abnormality. . Electronically signed on Apr 26, 2018 6:57:21 PM EST by: Louie Amador M.D., Certified by [facility]), Diagnostic Radiology CT maxillofacial Other Rad Studies (CT/US): Read By Radiologist, Radiology Report Reviewed CT/US Interpretation: EXAM: CT Maxillofacial without Intravenous Contrast. CLINICAL HISTORY: Trauma. TECHNIQUE: Axial computed tomography images of the face without intravenous contrast. Sagittal and coronal reformatted images were generated. 0.00 mGy-cm. CONTRAST: Without. COMPARISON: None provided. FINDINGS: BONES: No acute fracture or aggressive appearing osseous lesion. The mandible is intact. SOFT TISSUES: The soft tissues are unremarkable. SINUSES: The sinuses are clear. ORBITS: The orbits are normal. No retrobulbar hematoma or mass. IMPRESSION: Unremarkable maxillofacial CT. . Electronically signed on Apr 26, 2018 7:01:04 PM EST by: Louie Amador M.D., Certified by [facility], Diagnostic Radiology. Reevaluation Time: 20:09 Reassessment Condition: Improved (NEURO INTACT VSS ASYMPT) Medical Decision Making Medical Decision Making: Plan - CT maxillofacial - CT head - XR b/l knee - Tylenol 650mg PO - Toradol 30mg IM - XR pelvis Disposition Counseled Patient/Family Regarding: Studies Performed, Diagnosis, Need For Followup - Disposition Referrals: YOUR,PMD [Other] Disposition: HOME/ ROUTINE Disposition Time: 20:09 Condition: IMPROVED Instructions: Contusion (DC), Eye Contusion (DC) - Clinical Impression Clinical Impression: Periorbital contusion, Knee contusion - Scribe Statement The provider has reviewed the documentation as recorded by the Scribe Amy De Jesuseque All medical record entries made by the Scribe were at my direction and p ersonally dictated by me. I have reviewed the chart and agree that the record accurately reflects my personal performance of the history, physical exam, medical decision making, and the department course for this patient. I have also personally directed, reviewed, and agree with the discharge instructions and disposition.
[2018-04-26 20:19] VITALS: BP 120/55; PULSE 78; RESP 20; TEMP 97.8; O2SAT 95
--- NOTE | 2018-04-27 08:25 | CT ---
Date of service: 04/26/2018 PROCEDURE: CT HEAD WITHOUT CONTRAST. HISTORY: TRAUMA COMPARISON: 03/13/2018 TECHNIQUE: Axial computed tomography images were obtained through the head/brain without intravenous contrast. Radiation dose: Total exam DLP = 968.63 mGy-cm. This CT exam was performed using one or more of the following dose reduction techniques: Automated exposure control, adjustment of the mA and/or kV according to patient size, and/or use of iterative reconstruction technique. FINDINGS: HEMORRHAGE: No intracranial hemorrhage. BRAIN: No mass effect or edema. Scattered focal lucencies in the subcortical and periventricular white matter suggestive for chronic microvascular ischemic change. Bilateral basal ganglia calcifications. VENTRICLES: Unremarkable. No hydrocephalus. CALVARIUM: Unremarkable. PARANASAL SINUSES: Unremarkable as visualized. No significant inflammatory changes. MASTOID AIR CELLS: Partial opacification of the left mastoid air cells. OTHER FINDINGS: Intracranial arterial calcifications. Streak artifact in the posterior fossa limits evaluation. IMPRESSION: No acute intracranial abnormality. Additional findings as above. If symptoms persists, consider correlation with MRI. A preliminary report was generated at 6:57 p.m. on 04/26/[address] Louie Amador from [employer].
--- NOTE | 2018-04-27 10:12 | CT ---
CT maxillofacial HISTORY: Trauma. Comparison: None available. Technique: Multiple contiguous axial images were performed through the maxillofacial region without the use of intravenous contrast. Subsequently, sagittal and coronal reformatted images were obtained. This CT exam was performed using one or more of the following dose reduction techniques: Automated exposure control, adjustment of the mA and/or kV according to patient size, and/or use of iterative reconstruction technique. Findings: Mucosal thickening and opacification at the right aspect of the sphenoid sinus. Bilateral maxillary sinuses are preserved. Mild mucosal thickening of the ethmoid air cells. Frontal sinus is preserved. Partial opacification at the inferior aspect of the bilateral mastoid air cells. Few dental caries noted. Mild productive change at the level of the left posterior mandible at the level of the temporomandibular joint space. Degenerative changes in the cervical spine with productive change at the atlantodental interval. Soft tissue swelling overlying the left frontal region. Visualized orbital globes are preserved. Impression: Negative acute. Sinus mucosal disease as above. A preliminary report was generated at 7:01 p.m. on 04/26/[address] Louie Amador from [employer].
--- NOTE | 2018-04-27 10:45 | RAD ---
Date of service: 04/26/2018 PROCEDURE: Bilateral Knee Radiographs. HISTORY: TRAUMA COMPARISON: None. FINDINGS: BONES: Right Knee: Normal. No fracture. Left Knee: Normal. No fracture. JOINTS: Right Knee: Medial and lateral compartment chondrocalcinosis. Narrowing of the medial compartment. Lateral and patellofemoral compartments are preserved. No articular erosion. Likely medial osteoarthritis. Left knee: Narrowing of the medial compartment consistent with osteoarthritis. No articular erosion. Lateral and patellofemoral compartments are preserved. SOFT TISSUES: Right Knee: Normal. Left Knee: Normal. JOINT EFFUSION: Right Knee: None. Left Knee: None. OTHER FINDINGS: None. IMPRESSION: Bilateral medial osteoarthritis. Right medial and lateral compartment chondrocalcinosis common nonspecific.
--- NOTE | 2018-04-27 14:06 | RAD ---
PROCEDURE: Radiographs of the pelvis. HISTORY: PAIN COMPARISON: None available. FINDINGS: BONES: No acute displaced fracture. JOINTS: Mild bilateral joint space narrowing. No dislocation. The sacroiliac joints appear intact. The pubic symphysis appears unremarkable. OTHER FINDINGS: No significant joint effusion appreciated. Soft tissues appear unremarkable. No evidence of radiopaque foreign body. IMPRESSION: No acute displaced fracture, dislocation, or significant joint effusion identified. If symptoms persist, or if there is continued clinical concern, x-ray follow-up in 7-10 days should be considered.
== END 2018-04-26 20:27 | disposition home or self-care (01) ==
LOC: C.ER 17:23
DX: S00.10XA Contusion of unspecified eyelid and periocular area, initial encounter (principal); S80.02XA Contusion of left knee, initial encounter; W07.XXXA Fall from chair, initial encounter; Y92.009 Unspecified place in unspecified non-institutional (private) residence as the place of occurrence of the external cause
CPT/HCPCS: 70450; 70486; 72170; 73562; 96372; 99285; J1885

== ENCOUNTER 2018-06-24 10:54 | Emergency (ER) | payer MEDICARE ==
[2018-06-24 10:54] VITALS: BMI 28.6
[2018-06-24 11:09] VITALS: RESP 18
--- NOTE | 2018-06-24 11:37 | C.PDOC ---
History Of Present Illness 72 year old female brought by ambulance presents to ED s/p fall that occurred in her home earlier today at 9am. Patient states she was sleeping when she got out of bed to go use the bathroom when she lost her balance and fell. Patient doesn't know if she hit her head or if she lost consciousness. Patient's daughter found her on the floor and called the ambulance. Patient states that she has pain in her lower back. She has a PMHx of Parkinson's disease. She denies chest pain or trauma, abdominal pain or trauma, weakness, numbness, headache, dizziness, and lightheadedness. - HPI Time Seen by Provider: 06/24/18 11:14 Chief Complaint (Nursing): Trauma History Per: Patient, EMS History/Exam Limitations: no limitations Onset/Duration Of Symptoms: Hrs (2.5) Severity: Mild Pain Scale Rating Of: 3 Additional History Per: Patient, EMS, Family - Fall Fall:Prior To Injury: Lost Balance Past Medical History Reviewed: Historical Data, Nursing Documentation, Vital Signs Vital Signs: Last Vital Signs Temp 97.9 F 06/24/18 11:02 Pulse 83 06/24/18 11:02 Resp 18 06/24/18 11:02 BP 109/66 06/24/18 11:02 Pulse Ox 99 06/24/18 11:02 - Medical History PMH: Anxiety, Arthritis, Diabetes (with neuropathy), Diverticulitis, Hype rcholesterolemia, Hyperlipidemia, Osteoporosis, Parkinson's Disease, TIA Surgical History: Appendectomy, Cholecystectomy - [facility] Procedures APPLICATION OF SPLINT (09/26/05) BED MOBILITY TREATMENT USING ASSIST EQUIPMENT (12/13/17) COLONOSCOPY (02/16/14) DRESSING TECHNIQUES TREATMENT USING ASSIST EQUIPMENT (12/13/17) GAIT TRAINING/AMBULAT TREATMENT USING ASSIST EQUIPMENT (12/13/17) LAPAROSCOP LYSIS-PERITONEAL ADHES (06/29/99) LAPAROSCOP REMOVE OVARIES/TUBES (06/29/99) MANUAL THERAPY TECHNIQUES TREATMENT OF MUSCULOSK LOW BACK/LE (12/13/17) TRANSFER TRAINING TREATMENT USING ASSIST EQUIPMENT (12/13/17) Family History: States: Unknown Family Hx - Social History Hx Alcohol Use: No Hx Substance Use: No - Immunization History Hx Tetanus Toxoid Vaccination: No Hx Influenza Vaccination: Yes Hx Pneumococcal Vaccination: Yes Review Of Systems Constitutional: Negative for: Fever, Chills, Weakness Cardiovascular: Negative for: Chest Pain, Light Headedness Gastrointestinal: Negative for: Abdominal Pain Musculoskeletal: Positive for: Back Pain (lower back) Neurological: Negative for: Weakness, Numbness, Headache, Dizziness Physical Exam - Physical Exam Appears: Well, Non-toxic, No Acute Distress Skin: Normal Color, Warm, Dry Head: Atraumatic, Normacephalic Oral Mucosa: Moist Neck: Normal ROM, Paracervical Tenderness (mild) Chest: Symmetrical, No Tenderness Cardiovascular: Rhythm Regular Respiratory: Normal Breath Sounds Gastrointestinal/Abdominal: Soft, No Tenderness Back: Paraspinal Tenderness (paralumbar area) Extremity: Other (ecchymosis to the left knee and the left shoulder, decreased ROM in the left knee) Pulses: Left Dorsalis Pedis: Normal, Right Dorsalis Pedis: Normal Neurological/Psych: Oriented x3, Normal Speech, Normal Cognition ED Course And Treatment - Laboratory Results Result Diagrams: 06/24/18 11:53 06/24/18 11:53 Lab Interpretation: Normal ECG: Interpreted By Me ECG Rhythm: Sinus Rhythm, Nonspecific Changes ECG Interpretation: No Acute Changes Rate From EC O2 Sat by Pulse Oximetry: 99 (in RA) Pulse Ox Interpretation: Normal - Other Rad Bilateral Knee X-ray X-Ray: Interpreted by Me, Viewed By Me Interpretation: Accession No. : [id number]. Patient Name / ID : MATIAS ANTONY / [id number]. Exam Date : 06/24/2018 12:18:29 ( Approved ). Study Comment : Sex / Age : F / 72Y. Creator : Niya Mahan MD. Dictator : Niya Mahan MD. Grizzly Worker : Felt Pad Cutter : Niya Mahan MD. Approver2 : Report Date : 06/24/2018 16:58:32. My Comment : . Date of service: 06/24/2018. PROCEDURE: Bilateral Knee Radiographs. HISTORY: trauma. COMPARISON: None available. FINDINGS: BONES: Right Knee: No acute displaced fracture identified. Left Knee: No acute displaced fracture identified. JOINTS: Right Knee: Chondrocalcinosis. No dislocation. Left knee: No dislocation. SOFT TISSUES: Right Knee: No evidence of radiopaque foreign body. Left Knee: Vascular calcifications. No evidence of radiopaque foreign body. JOINT EFFUSION: Right Knee: No significant joint effusion identified. Left Knee: No significant joint effusion identified. OTHER FINDINGS: None. IMPRESSION: No acute displaced fracture or subluxation identified. If symptoms persist or if there is continued clinical concern, x-ray follow-up in 7-10 days should be considered. - CT Scan/US Head CT Other Rad Studies (CT/US): Interpreted By Me, Read By Radiologist CT/US Interpretation: Accession No. : [id number]. Patient Name / ID : MATIAS ANTONY / [id number]. Exam Date : 06/24/2018 12:13:40 ( Approved ). Study Comm ent : Sex / Age : F / 72Y. Creator : Brandi Flores. Dictator : Niya Mahan MD. Grizzly Worker : Felt Pad Cutter : Niya Mahan MD. Approver2 : Report Date : 06/24/2018 12:24:46. My Comment : . Date of service: 06/24/2018. PROCEDURE: CT HEAD WITHOUT CONTRAST. HISTORY: R/O Bleed. COMPARISON: Noncontrast head CT performed 04/26/18. TECHNIQUE: Axial computed tomography images were obtained through the head/brain without intravenous contrast. Radiation dose: Total exam DLP = 1376.97 mGy-cm. This CT exam was performed using one or more of the following dose reduction techniques: Automated exposure control, adjustment of the mA and/or kV according to patient size, and/or use of iterative reconstruction technique. FINDINGS: HEMORRHAGE: No intracranial hemorrhage. BRAIN: Diffuse atrophy with prominence of the ventricles and sulci noted. No mass effect or edema. Intracranial atherosclerosis. Bilateral basal ganglia calcifications. Scattered periventricular and subcortical white matter hypodensities, which are nonspecific, but often seen with chronic microvascular ischemic disease. Please note that MRI with diffusion imaging is more sensitive in the detection of acute ischemic event. VENTRICLES: No hydrocephalus. CALVARIUM: Unremarkable. PARANASAL SINUSES: Unremarkable. MASTOID AIR CELLS: Under aeration of the left mastoid air cells; correlate clinically for history of mastoiditis. OTHER FINDINGS: None. IMPRESSION: Nonspecific white matter changes as above. Under aeration of the left mastoid air cells; correlate clinically for history of mastoiditis. C-spine CT Other Rad Studies (CT/US): Interpreted By Me, Read By Radiologist CT/US Interpretation: Accession No. : [id number]. Patient Name / ID : MATIAS ANTONY / [id number]. Exam Date : 06/24/2018 12:15:01 ( Approved ). Study Comment : Sex / Age : F / 72Y. Creator : Brandi Flores. Dictator : Escobar Blue MD. Grizzly Worker : Felt Pad Cutter : Escobar Blue MD. Approver2 : Report Date : 06/24/2018 12:24:53. My Comment : * . Date of service: 06/24/2018. PROCEDURE: CT Cervical Spine without contrast. HISTORY: neck pain. COMPARISON: Comparison is made to the previous study dated 03/13/2018. TECHNIQUE: Axial computed tomography images were obtained of the cervical spine without the use of intravenous contrast. Coronal and sagittal reformatted images were created and reviewed. Radiation dose: Total exam DLP = 336.94 mGy-cm. This CT exam was performed using one or more of the following dose reduction techniques: Automated exposure control, adjustment of the mA and/or kV according to patient size, and/or use of iterative r econstruction technique. FINDINGS: VERTEBRAE: No fracture. Normal alignment. No destructive bony lesion. Exaggeration of the cervical lordosis is again noted. DISCS/SPINAL CANAL/NEURAL FORAMINA: Mild spondylosis is again noted. Discs heights are grossly preserved. PARASPINAL SOFT TISSUES: Unremarkable. OTHER FINDINGS: None. IMPRESSION: No CT evidence of acute displaced fracture or acute traumatic subluxation. No significant interval changes noted since the prior study. Bilateral Hip X-ray Other Rad Studies (CT/US): Interpreted By Me, Read By Radiologist CT/US Interpretation: Accession No. : [id number]. Patient Name / ID : MATIAS ANTONY / [id number]. Exam Date : 06/24/2018 12:18:29 ( Approved ). Study Comment : Sex / Age : F / 72Y. Creator : Escobar Blue MD. Dictator : Escobar Blue MD. Grizzly Worker : Felt Pad Cutter : Escobar Blue MD. Approver2 : Report Date : 06/24/2018 13:49:37. My Comment : . PROCEDURE: Radiographs of the pelvis and bilateral hips. HISTORY: trauma. COMPARISON: None. FINDINGS: BONES: Pelvis: Unremarkable. Right hip:Unremarkable. Left hip:Unremarkable. JOINTS: Right hip: Mild osteoarthritic changes. Left hip: Mild osteoarthritic changes. Sacroiliac Joints: Mild arthritic changes. Pubic symphysis: Unremarkable. SOFT TISSUES: Normal. OTHER FINDINGS: None. IMPRESSION: No radiographic evidence of acute fracture or dislocation. X-ray of Both shoulders Other Rad Studies (CT/US): Interpreted By Me, Read By Radiologist CT/US Interpretation: Accession No. : [id number]. Patient Name / ID : MATIAS ANTONY / [id number]. Exam Date : 06/24/2018 12:18:29 ( Approved ). Study Comment : Sex / Age : F / 72Y. Creator : Escobar Blue MD. Dictator : Escobar Blue MD. Grizzly Worker : Felt Pad Cutter : Escobar Blue MD. Approver2 : Report Date : 06/24/2018 13:47:14. My Comment : . Date of service: 06/24/2018. PROCEDURE: Radiographs of both shoulders. HISTORY: trauma. COMPARISON: No prior. FINDINGS: BONES: Right shoulder: Normal. No fracture. Left shoulder: Normal. No fracture. JOINTS: Right shoulder: Mild osteoarthritic changes. Left shoulder: Mild osteoarthritic changes. SOFT TISSUES: Right shoulder: There is small calcification adjacent to the right humeral head likely represent calcified tendinitis. Right shoulder: Grossly unremarkable. OTHER FINDINGS: None. IMPRESSION: Mild osteoarthritic changes. No evidence of acute fracture or dislocation. Right shoulder calcified t endinitis. Progress Note: Treated with IVF. Labs ordered. On re-evaluation abdomen soft ambulating with steady gait. Discharged in stable condition Reassessment Condition: Improved Medical Decision Making Medical Decision Making: Impression: 72 year old female presents to the ED s/p fall Plan C-spine CT Head CT EKG Left Knee X-ray Labs ordered with troponin and CBC Left hip X-ray LS spine X-ray Left shoulder X-ray UA Disposition Counseled Patient/Family Regarding: Studies Performed, Diagnosis, Need For Followup - Disposition Referrals: Andrew Christie MD [Staff Provider] - Disposition: HOME/ ROUTINE Disposition Time: 13:25 Condition: STABLE Additional Instructions: Follow up with your PMD for further evaluation Return to ED if any increase symptoms Instructions: Preventing Falls in the Older Adult Forms: [employer] (Slovak) Print Language: BELARUSIAN - POA Present On Arrival: None - Clinical Impression Clinical Impression: Contusion, Fall - PA / MEDICAL DELIVERY TECHNICIAN / Resident Statement MD/DO has reviewed & agrees with the documentation as recorded. (Rebecca Zayas) - Scribe Statement The provider has reviewed the documentation as recorded by the Scribe (Rebecca Zayas) All medical record entries made by the Scribe were at my direction and personally dictated by me. I have reviewed the chart and agree that the record accurately reflects my personal performance of the history, physical exam, medical decision making, and the department course for this patient. I have also personally directed, reviewed, and agree with the discharge instructions and disposition.
[2018-06-24 12:02] LABS: BASO % 0.4 % (0.0-2.0); EOS % 0.2 % (0.0-4.0); HEMOGLOBIN 12.5 g/dL (11.0-16.0); LYMPH # 1.1 K/uL (1.0-4.3); LYMPH % 21.2 % (20.0-40.0); MEAN CORPUSCULAR HEMOGLOBIN 31.6 pg (27.0-31.0); MEAN CORPUSCULAR HGB CONC 32.9 g/dL (33.0-37.0); MEAN PLATELET VOLUME 8.7 fL (7.2-11.7); MONO # 0.6 K/uL (0.0-0.8); MONO % 11.3 % (0.0-10.0); NEUT # 3.5 K/uL (1.8-7.0); NEUT % 66.9 % (50.0-75.0); RBC 3.97 Mil/uL (3.80-5.20); RED CELL DISTRIBUTION WIDTH 13.4 % (11.5-14.5); WHITE BLOOD COUNT 5.2 K/uL (4.8-10.8)
[2018-06-24 12:16] LABS: ALB/GLOB RATIO 1.5 (1.0-2.1); ALBUMIN 4.5 g/dL (3.5-5.0); ALT/SGPT 16 U/L (9-52); AST/SGOT 43 U/L (14-36); BLOOD UREA NITROGEN 14 mg/dL (7-17); CALCIUM 9.5 mg/dl (8.6-10.4); GFR NON-AFRICAN AMERICAN > 60
[2018-06-24 12:26] LABS: CK-MB 1.78 ng/mL (0.0-3.38)
--- NOTE | 2018-06-24 12:39 | CT ---
Date of service: 06/24/2018 PROCEDURE: CT HEAD WITHOUT CONTRAST. HISTORY: R/O Bleed COMPARISON: Noncontrast head CT performed 04/26/18 TECHNIQUE: Axial computed tomography images were obtained through the head/brain without intravenous contrast. Radiation dose: Total exam DLP = 1376.97 mGy-cm. This CT exam was performed using one or more of the following dose reduction techniques: Automated exposure control, adjustment of the mA and/or kV according to patient size, and/or use of iterative reconstruction technique. FINDINGS: HEMORRHAGE: No intracranial hemorrhage. BRAIN: Diffuse atrophy with prominence of the ventricles and sulci noted. No mass effect or edema. Intracranial atherosclerosis. Bilateral basal ganglia calcifications. Scattered periventricular and subcortical white matter hypodensities, which are nonspecific, but often seen with chronic microvascular ischemic disease. Please note that MRI with diffusion imaging is more sensitive in the detection of acute ischemic event. VENTRICLES: No hydrocephalus. CALVARIUM: Unremarkable. PARANASAL SINUSES: Unremarkable. MASTOID AIR CELLS: Under aeration of the left mastoid air cells; correlate clinically for history of mastoiditis. OTHER FINDINGS: None. IMPRESSION: Nonspecific white matter changes as above. Under aeration of the left mastoid air cells; correlate clinically for history of mastoiditis.
--- NOTE | 2018-06-24 12:39 | CT ---
Date of service: 06/24/2018 PROCEDURE: CT Cervical Spine without contrast HISTORY: neck pain COMPARISON: Comparison is made to the previous study dated 03/13/2018 TECHNIQUE: Axial computed tomography images were obtained of the cervical spine without the use of intravenous contrast. Coronal and sagittal reformatted images were created and reviewed. Radiation dose: Total exam DLP = 336.94 mGy-cm. This CT exam was performed using one or more of the following dose reduction techniques: Automated exposure control, adjustment of the mA and/or kV according to patient size, and/or use of iterative reconstruction technique. FINDINGS: VERTEBRAE: No fracture. Normal alignment. No destructive bony lesion. Exaggeration of the cervical lordosis is again noted. DISCS/SPINAL CANAL/NEURAL FORAMINA: Mild spondylosis is again noted. Discs heights are grossly preserved. PARASPINAL SOFT TISSUES: Unremarkable. OTHER FINDINGS: None. IMPRESSION: No CT evidence of acute displaced fracture or acute traumatic subluxation. No significant interval changes noted since the prior study.
--- NOTE | 2018-06-24 13:50 | RAD ---
Date of service: 06/24/2018 PROCEDURE: Radiographs of both shoulders HISTORY: trauma COMPARISON: No prior. FINDINGS: BONES: Right shoulder: Normal. No fracture. Left shoulder: Normal. No fracture. JOINTS: Right shoulder: Mild osteoarthritic changes Left shoulder: Mild osteoarthritic changes. SOFT TISSUES: Right shoulder: There is small calcification adjacent to the right humeral head likely represent calcified tendinitis Right shoulder: Grossly unremarkable. OTHER FINDINGS: None. IMPRESSION: Mild osteoarthritic changes. No evidence of acute fracture or dislocation. Right shoulder calcified tendinitis.
[2018-06-24 13:51] VITALS: BP 126/63; PULSE 78; TEMP 98
--- NOTE | 2018-06-24 13:53 | RAD ---
PROCEDURE: Radiographs of the pelvis and bilateral hips HISTORY: trauma COMPARISON: None. FINDINGS: BONES: Pelvis: Unremarkable. Right hip:Unremarkable. Left hip:Unremarkable. JOINTS: Right hip: Mild osteoarthritic changes Left hip: Mild osteoarthritic changes Sacroiliac Joints: Mild arthritic changes Pubic symphysis: Unremarkable. SOFT TISSUES: Normal. OTHER FINDINGS: None. IMPRESSION: No radiographic evidence of acute fracture or dislocation.
[2018-06-24 13:57] VITALS: O2SAT 99
--- NOTE | 2018-06-24 16:48 | RAD ---
Date of service: 06/24/2018 PROCEDURE: Radiographs of the Lumbar Spine. HISTORY: trauma COMPARISON: Lumbar spine radiographs performed 12/10/17 FINDINGS: BONES: Alignment appears satisfactory. Osseous demineralization limits evaluation for acute fracture lines. Facet hypertrophy. No listhesis. No acute displaced fracture identified. DISC SPACES: Unremarkable. OTHER FINDINGS: Dense atherosclerotic calcifications of the aorta. IMPRESSION: Osseous demineralization. Degenerative changes.
--- NOTE | 2018-06-24 17:01 | RAD ---
Date of service: 06/24/2018 PROCEDURE: Bilateral Knee Radiographs. HISTORY: trauma COMPARISON: None available. FINDINGS: BONES: Right Knee: No acute displaced fracture identified. Left Knee: No acute displaced fracture identified. JOINTS: Right Knee: Chondrocalcinosis. No dislocation. Left knee: No dislocation. SOFT TISSUES: Right Knee: No evidence of radiopaque foreign body. Left Knee: Vascular calcifications. No evidence of radiopaque foreign body. JOINT EFFUSION: Right Knee: No significant joint effusion identified. Left Knee: No significant joint effusion identified. OTHER FINDINGS: None. IMPRESSION: No acute displaced fracture or subluxation identified. If symptoms persist or if there is continued clinical concern, x-ray follow-up in 7-10 days should be considered.
--- NOTE | 2018-06-24 19:22 | CARD ---
APPROVED REPORT Date of service: 06/24/2018 EKG Measurement Heart [id number] <Conclusion> Normal sinus rhythm Inferior infarct, age undetermined Abnormal ECG
== END 2018-06-24 13:51 | disposition home or self-care (01) ==
LOC: C.ER 10:54
DX: S80.02XA Contusion of left knee, initial encounter (principal); S40.012A Contusion of left shoulder, initial encounter; W06.XXXA Fall from bed, initial encounter; Y92.003 Bedroom of unspecified non-institutional (private) residence as the place of occurrence of the external cause; E11.40 Type 2 diabetes mellitus with diabetic neuropathy, unspecified; G20 Parkinson's disease; E78.00 Pure hypercholesterolemia, unspecified; Z86.73 Personal history of transient ischemic attack (TIA), and cerebral infarction without residual deficits

== ENCOUNTER 2018-08-17 11:49 | Emergency (ER) | payer MEDICARE ==
[2018-08-17 11:50] VITALS: BMI 28.6
--- NOTE | 2018-08-17 13:51 | C.PDOC ---
History Of Present Illness 72 y/o female, with history of Parkinsons disease, comes in to ED with left- sided pain to face that started over the weekend. Also complains of mild headache. States pain is anterior to left ear. Denies fever, chills, dizziness, or other complaints. Time Seen by Provider: 08/17/18 13:32 Chief Complaint (Nursing): Headache History Per: Patient History/Exam Limitations: no limitations Onset/Duration Of Symptoms: Days Current Symptoms Are (Timing): Still Present Past Medical History Reviewed: Historical Data, Nursing Documentation, Vital Signs Vital Signs: Last Vital Signs Temp 98.8 F 08/17/18 12:04 Pulse 84 08/17/18 12:04 Resp 18 08/17/18 12:04 BP 150/84 08/17/18 12:04 Pulse Ox 99 08/17/18 12:04 Primary Care Provider: Andrew Christie - Medical History PMH: Anxiety, Arthritis, Diabetes (with neuropathy), Diverticulitis, Hypercholesterolemia, Hyperlipidemia, Osteoporosis, Parkinson's Disease, TIA Denies: CAD, Gastritis, Gall Bladder Disease, GERD, HIV, Pancreatitis, Chronic Kidney Disease Surgical History: Appendectomy, Cholecystectomy - [facility] Procedures APPLICATION OF SPLINT (09/26/05) BED MOBILITY TREATMENT USING ASSIST EQUIPMENT (12/13/17) COLONOSCOPY (02/16/14) DRESSING TECHNIQUES TREATMENT USING ASSIST EQUIPMENT (12/13/17) GAIT TRAINING/AMBULAT TREATMENT USING ASSIST EQUIPMENT (12/13/17) LAPAROSCOP LYSIS-PERITONEAL ADHES (06/29/99) LAPAROSCOP REMOVE OVARIES/TUBES (06/29/99) MANUAL THERAPY TECHNIQUES TREATMENT OF MUSCULOSK LOW BACK/LE (12/13/17) TRANSFER TRAINING TREATMENT USING ASSIST EQUIPMENT (12/13/17) Family History: States: No Known Family Hx - Social History Hx Alcohol Use: No Hx Substance Use: No - Immunization History Hx Tetanus Toxoid Vaccination: No Hx Influenza Vaccination: Yes Hx Pneumococcal Vaccination: Yes Review Of Systems Except As Marked, All Systems Reviewed And Found Negative. Constitutional: Negative for: Fever, Chills Cardiovascular: Negative for: Chest Pain Respiratory: Negative for: Shortness of Breath Gastrointestinal: Negative for: Nausea, Vomiting, Abdominal Pain Neurological: Positive for: Headache. Negative for: Dizziness Physical Exam - Physical Exam Appears: Non-toxic, No Acute Distress Skin: Warm, Dry Head: Normacephalic, Tenderness (anterior to left ear) Eye(s): bilateral: Normal Inspection Oral Mucosa: Moist Neck: Supple Cardiovascular: Rhythm Regular, No Murmur Respiratory: Normal Breath Sounds, No Rales, No Rhonchi, No Wheezing Extremity: Bilateral: Atraumatic Neurological/Psych: Oriented x3, Normal Speech ED Course And Treatment O2 Sat by Pulse Oximetry: 99 (RA) Pulse Ox Interpretation: Normal - CT Scan/US head CT Other Rad Studies (CT/US): Read By Radiologist, Radiology Report Reviewed CT/US Interpretation: FINDINGS: HEMORRHAGE: No acute parenchymal, subarachnoid or extra-axial hemorrhage. BRAIN: Mild moderate chronic periventricular white matter ischemic changes are present and extend peripherally into the deep and to a lesser degree subcortical white matter both cerebral hemispheres. There appears to be some extension of these changes into the white matter tracts of both basal nuclei. Note that the possibility of a small hyperacute infarct cannot be excluded on this exam. Moderate atrophy.. VENTRICLES: No obstructive hydrocephalus. CALVARIUM: Unremarkable. PARANASAL SINUSES: Unremarkable as visualized. No significant inflammatory changes. MASTOID AIR CELLS: Unremarkable as visualized. No inflammatory changes. OTHER FINDINGS: Changes of bilateral cataract surgery. IMPRESSION: No acute intracranial hemorrhage. Mild moderate chronic periventricular white matter ischemic changes are present and extend peripherally into the deep and to a lesser degree subcortical white matter both cerebral hemispheres. There appears to be some extension of these changes into the white matter tracts of both basal nuclei. Note that the possibility of a small hyperacute infarct cannot be excluded on this exam. Moderate atrophy.. Maxillofacial CT Other Rad Studies (CT/US): Read By Radiologist, Radiology Report Reviewed CT/US Interpretation: FINDINGS: NASAL BONES: Unremarkable. ORBITS: The gl obes are symmetric and normal in appearance. PARANASAL SINUSES/ MASTOIDS: Aerosolized secretions in the right sphenoid chamber. The remaining included paranasal sinuses are clear. The right mastoid air cells are clear. The left mastoid air cells are underdeveloped. MAXILLA: Grossly normal in appearance. MANDIBLE/ TEMPOROMANDIBULAR JOINTS: Unremarkable. SKULL BASE: Unremarkable. TEMPORAL BONES: Middle ears and mastoid grossly unremarkable. OTHER FINDINGS: There is a periapical abscess in the right 1st mandibular premolar and right 2nd maxillary premolar. The parotid glands are symmetric without evidence for ductal dilatation, calcifications or sialadenitis. IMPRESSION: 1. Limited examination in the absence of intravenous contrast. Allowing for this, no evidence for acute left parotitis or parotid mass. 2. Aerosolized secretions in the right sphenoid chamber may represent acute sinusitis in the appropriate clinical setting. 3. Right 1st mandibular premolar and right 2nd maxillary premolar periapical abscesses. Medical Decision Making Medical Decision Making: ?silalithiasis, parotidis, tmj dysfunciton Plan: --Head CT --Maxillofacial CT --Tylenol ct neg. pain improve.d adivse pt will need oupt ent fu. return precautions advised. Disposition - Disposition Referrals: Margarito Polk MD [Staff Provider] - Disposition: HOME/ ROUTINE Disposition Time: 16:00 Condition: STABLE Additional Instructions: follow up with your doctor/specialist return to any er with worsening. Instructions: Temporomandibular Joint (TMJ) Disorders Forms: [employer] (Kittitian) - Clinical Impression Clinical Impression: Facial pain - Scribe Statement The provider has reviewed the documentation as recorded by the Damion Ruiz Provider Attestation: All medical record entries made by the Damion were at my direction and personally dictated by me. I have reviewed the chart and agree that the record accurately reflects my personal performance of the history, physical exam, medical decision making, and the department course for this patient. I have also personally directed, reviewed, and agree with the discharge instructions and disposition.
--- NOTE | 2018-08-17 15:02 | CT ---
Date of service: 08/17/2018 PROCEDURE: CT HEAD WITHOUT CONTRAST. HISTORY: Headache COMPARISON: Comparison made with CT scan brain 06/24/2018. TECHNIQUE: Axial computed tomography images were obtained through the head/brain without intravenous contrast. Radiation dose: Total exam DLP = 1006.34 mGy-cm. This CT exam was performed using one or more of the following dose reduction techniques: Automated exposure control, adjustment of the mA and/or kV according to patient size, and/or use of iterative reconstruction technique. FINDINGS: HEMORRHAGE: No acute parenchymal, subarachnoid or extra-axial hemorrhage. BRAIN: Mild moderate chronic periventricular white matter ischemic changes are present and extend peripherally into the deep and to a lesser degree subcortical white matter both cerebral hemispheres. There appears to be some extension of these changes into the white matter tracts of both basal nuclei. Note that the possibility of a small hyperacute infarct cannot be excluded on this exam. Moderate atrophy.. VENTRICLES: No obstructive hydrocephalus. CALVARIUM: Unremarkable. PARANASAL SINUSES: Unremarkable as visualized. No significant inflammatory changes. MASTOID AIR CELLS: Unremarkable as visualized. No inflammatory changes. OTHER FINDINGS: Changes of bilateral cataract surgery. IMPRESSION: No acute intracranial hemorrhage. Mild moderate chronic periventricular white matter ischemic changes are present and extend peripherally into the deep and to a lesser degree subcortical white matter both cerebral hemispheres. There appears to be some extension of these changes into the white matter tracts of both basal nuclei. Note that the possibility of a small hyperacute infarct cannot be excluded on this exam. Moderate atrophy..
[2018-08-17 15:12] VITALS: RESP 16
--- NOTE | 2018-08-17 16:10 | CT ---
Date of service: 08/17/2018 PROCEDURE: CT MAXILLOFACIAL BONES WITHOUT CONTRAST HISTORY: left parotid tenderness COMPARISON: None available. TECHNIQUE: Contiguous axial CT images of the maxillofacial bones were obtained. Coronal and sagittal reformats were generated. Radiation dose: Total exam DLP = 792.07 mGy-cm. This CT exam was performed using one or more of the following dose reduction techniques: Automated exposure control, adjustment of the mA and/or kV according to patient size, and/or use of iterative reconstruction technique. FINDINGS: NASAL BONES: Unremarkable. ORBITS: The globes are symmetric and normal in appearance. PARANASAL SINUSES/ MASTOIDS: Aerosolized secretions in the right sphenoid chamber. The remaining included paranasal sinuses are clear. The right mastoid air cells are clear. The left mastoid air cells are underdeveloped. MAXILLA: Grossly normal in appearance. MANDIBLE/ TEMPOROMANDIBULAR JOINTS: Unremarkable. SKULL BASE: Unremarkable. TEMPORAL BONES: Middle ears and mastoid grossly unremarkable. OTHER FINDINGS: There is a periapical abscess in the right 1st mandibular premolar and right 2nd maxillary premolar. The parotid glands are symmetric without evidence for ductal dilatation, calcifications or sialadenitis. IMPRESSION: 1. Limited examination in the absence of intravenous contrast. Allowing for this, no evidence for acute left parotitis or parotid mass. 2. Aerosolized secretions in the right sphenoid chamber may represent acute sinusitis in the appropriate clinical setting. 3. Right 1st mandibular premolar and right 2nd maxillary premolar periapical abscesses.
[2018-08-17 16:48] VITALS: BP 142/88; PULSE 81; TEMP 98.1
[2018-08-17 20:20] VITALS: O2SAT 99
== END 2018-08-17 16:50 | disposition home or self-care (01) ==
LOC: C.ER 11:49
DX: R51 Headache (principal); G20 Parkinson's disease; Z86.73 Personal history of transient ischemic attack (TIA), and cerebral infarction without residual deficits